=== PATIENT | male | born 1960 | race Caucasian/White ===

== ENCOUNTER → 2021-01-14 11:24 | Outpatient (BNVA) | payer SELFPAY | PROVIDERS: PCP Internal Medicine; Visit Provider Physician Assistant Medical ==

== ENCOUNTER 2021-04-08 10:03 | Outpatient (REF) | payer BC, SELFPAY ==
--- NOTE | ~2021-04-08 | XR_ITS ---
EXAMINATION: XR LUMBOSACRAL SPINE CLINICAL INFORMATION: Pain COMPARISON: None TECHNIQUE: Three views of the lumbosacral spine. FINDINGS: 5 nonrib-bearing lumbar-type vertebral bodies is suggestion of partial sacralization of L5. No acute visible fracture or dislocation. Mild to moderate multilevel degenerative changes with disc space narrowing, endplate sclerosis, osteophyte formation, and facet arthropathy. Vertebral body heights and disc spaces are otherwise maintained. Posterior elements are intact. Paraspinal soft tissues are unremarkable. Visualized bowel gas is unremarkable. Pelvic phleboliths are noted. XR/XR lumbar spine 2-3V IMPRESSION: 1. No acute visible fracture or dislocation. 2. Mild to moderate multilevel degenerative changes.
--- NOTE | ~2021-04-08 | XR_ITS ---
EXAMINATION: XR CERVICAL SPINE CLINICAL INFORMATION: Pain runs through arms COMPARISON: None TECHNIQUE: 3 views of the cervical spine were obtained. FINDINGS: No acute visible fracture or dislocation. Straightening of normal cervical curvature which may be secondary to positioning versus muscle spasm. Mild multilevel degenerative changes with disc space narrowing, osteophyte, and facet arthropathy. Visualized dens is intact. Lateral masses are symmetric. Vertebral body heights and disc spaces are maintained. Prevertebral soft tissues are unremarkable. Posterior elements are intact. Paraspinal soft tissues are unremarkable. Visualized portions of the upper chest are unremarkable. XR/XR cervical spine 3V IMPRESSION: 1. No acute visible fracture or dislocation. 2. Straightening of normal cervical curvature which may be secondary to positioning versus muscle spasm. 3. Mild multilevel degenerative changes.
[2021-04-08 10:23] LABS: MANUAL DIFF FLAG NO
[2021-04-08 10:54] LABS: Basophils Percent Auto 0.3 % (0-2); Eosinophils Absolute Auto 0.2 X10*3/uL (0.0-0.4); Eosinophils Percent Auto 3.8 % (0-4); Hematocrit 45.9 % (42.0-52.0); Hemoglobin 15.5 g/dl (14.0-18.0); Imm Gran Abs Auto 0.05 X10*3/uL (0.00-0.03); Imm Gran Pct Auto 0.9 % (0.0-0.4); Lymphocytes Absolute Auto 1.4 X10*3/uL (1.2-4.9); Lymphocytes Percent Auto 24.4 % (20-40); Mean Corpuscular HGB Conc 33.8 g/dl (31.0-36.0); Mean Corpuscular Volume 91.8 fL (80.0-98.0); Mean Platelet Volume 9.3 fL (9.4-12.4); Monocytes Absolute Auto 0.6 X10*3/uL (0.1-1.2); Monocytes Percent Auto 10.1 % (2-11); Neutrophils Absolute Auto 3.5 x10*3/uL (2.0-8.3); Neutrophils Percent Auto 60.5 % (45-73); Platelet Count 267 X10*3/uL (160-400); Red Cell Distribution Width 12.1 % (11.0-16.0); White Blood Count 5.9 X10*3/uL (4.8-10.8)
[2021-04-08 11:47] LABS: Alanine Aminotransferase 22 U/L (0-40); Alkaline Phosphatase 67 U/L (39-117); Anion Gap 14 (12-20); Aspartate Amino Transferase 21 U/L (5-37); Bilirubin Total 0.4 mg/dL (0.0-1.0); Blood Urea Nitrogen 21 mg/dL (9-16); Calcium 9.1 mg/dL (8.4-10.2); Carbon Dioxide 25 mmol/L (22-29); Chloride 104 mmol/L (96-108); Cholesterol 196 mg/dL; Estimated Glomerular Filt Rate > 60; Glucose Random 101 mg/dL (60-115); Potassium 4.6 mmol/L (3.3-5.1); Sodium 138 mmol/L (135-145); Total Protein 6.8 g/dL (6.5-8.0)
[2021-04-08 12:04] LABS: Vitamin B12 521 pg/mL (200-900)
[2021-04-08 12:14] LABS: Prostate Specific Antigen 0.76 ng/mL (<0.05-4.0); Thyroid Stimulating Hormone 1.95 uIU/mL (0.32-4.0)
== END 2021-04-08 10:04 | disposition home or self-care (01) ==
LOC: HO.LAB 10:03
PROVIDERS: PCP Internal Medicine; Visit Provider Internal Medicine
DX: K21.9 Gastro-esophageal reflux disease without esophagitis (principal); M54.50 Low back pain, unspecified; M54.2 Cervicalgia; R53.83 Other fatigue; Z86.010 Personal history of colon polyps; Z12.5 Encounter for screening for malignant neoplasm of prostate
CPT/HCPCS: 36415; 72040; 72100; 80053; 82465; 82607; 84153; 84443; 85025; 86140

== ENCOUNTER 2023-01-22 16:19 | Outpatient (REF) | payer BC, SELFPAY | END 2023-01-22 16:20 | disposition home or self-care (01) | LOC: HO.LAB 16:19 | PROVIDERS: PCP Internal Medicine; Visit Provider Internal Medicine | DX: Z13.89 Encounter for screening for other disorder (principal) ==

== ENCOUNTER → 2023-01-25 12:52 | Outpatient (BNVA) | payer SELFPAY | PROVIDERS: PCP Internal Medicine; Visit Provider Physician Assistant | DX: Z02.79 Encounter for issue of other medical certificate (principal) ==

== ENCOUNTER 2023-01-25 14:44 | Outpatient (REF) | payer BC, SELFPAY ==
[2023-01-25 15:08] LABS: MANUAL DIFF FLAG NO
[2023-01-25 15:24] LABS: Basophils Percent Auto 0.6 % (0-2); Eosinophils Absolute Auto 0.1 X10*3/uL (0.0-0.4); Eosinophils Percent Auto 0.8 % (0-4); Hematocrit 46.8 % (42.0-52.0); Hemoglobin 15.8 g/dl (14.0-18.0); Imm Gran Abs Auto 0.07 X10*3/uL (0.00-0.03); Lymphocytes Absolute Auto 1.4 X10*3/uL (1.2-4.9); Lymphocytes Percent Auto 19.5 % (20-40); Mean Corpuscular HGB Conc 33.8 g/dl (31.0-36.0); Mean Corpuscular Hemoglobin 31.4 pg (27.0-33.0); Mean Platelet Volume 9.3 fL (9.4-12.4); Monocytes Absolute Auto 0.7 X10*3/uL (0.1-1.2); Monocytes Percent Auto 9.3 % (2-11); Neutrophils Absolute Auto 4.9 x10*3/uL (2.0-8.3); Neutrophils Percent Auto 68.8 % (45-73); Platelet Count 261 X10*3/uL (160-400); Red Blood Count 5.03 X10*6/uL (4.60-5.80); Red Cell Distribution Width 12.2 % (11.0-16.0); White Blood Count 7.1 X10*3/uL (4.8-10.8)
[2023-01-25 15:55] LABS: Alanine Aminotransferase 19 U/L (0-40); Albumin Level 4.3 g/dL (3.5-5.0); Alkaline Phosphatase 62 U/L (39-117); Anion Gap 12 (12-20); Aspartate Amino Transferase 17 U/L (5-37); Bilirubin Total 0.4 mg/dL (0.0-1.0); Blood Urea Nitrogen 22 mg/dL (9-16); Calcium 9.6 mg/dL (8.4-10.2); Carbon Dioxide 25 mmol/L (22-29); Chloride 106 mmol/L (96-108); Cholesterol 206 mg/dL (<200); Estimated Glomerular Filt Rate > 60; Glucose Random 94 mg/dL (60-115); Potassium 4.1 mmol/L (3.3-5.1); Sodium 139 mmol/L (135-145); Total Protein 7.1 g/dL (6.5-8.0)
[2023-01-25 16:13] LABS: Prostate Specific Antigen 0.81 ng/mL (<0.05-4.0)
== END 2023-01-25 14:45 | disposition home or self-care (01) ==
LOC: HO.LAB 14:44
PROVIDERS: PCP Internal Medicine; Visit Provider Internal Medicine
DX: L30.9 Dermatitis, unspecified (principal); K21.9 Gastro-esophageal reflux disease without esophagitis; Z86.010 Personal history of colon polyps; Z12.5 Encounter for screening for malignant neoplasm of prostate; E78.00 Pure hypercholesterolemia, unspecified
CPT/HCPCS: 36415; 80053; 82465; 84153; 85025

== ENCOUNTER 2023-07-24 06:29 | Day surgery (SDC) | payer BC, SELFPAY ==
--- NOTE | 2023-06-18 09:29 | P.CONAN_ITS ---
HPI - Anesthesia Eval Consult details Narrative: 63yo M for Colonoscopy [facility] Past Medical History Medical History (Updated 06/18/23 @ 08:18 by Rosalinda Saeed, RN) Tear, knee, medial meniscus Surgical History Surgical History (Updated 06/18/23 @ 08:18 by Rosalinda Saeed, RN) History of surgery on lower extremity H/O colonoscopy Meds Allergies Allergy/AdvReac Type Severity Reaction Status Date / Time No Known Allergies Allergy Verified 06/18/23 08:18 Home Medications Medication Instructions Recorded Confirmed Last Taken Type No Known Home Meds 06/18/23 06/18/23 Unknown History Assessment and Plan Assessment Anesthesia Assessment: Chart Reviewed
[2023-07-20 11:39] VITALS: BMI 27.2
--- NOTE | 2023-07-20 14:04 | P.CONAN_ITS ---
Documented by User: Dora Wilson NP 07/20/23 14:04 HPI - Anesthesia Eval Consult details Narrative: 63yo M for Colonoscopy [facility] Past Medical History Medical History Tear, knee, medial meniscus Surgical History Surgical History History of surgery on lower extremity H/O colonoscopy Social History Social History Patient Tobacco Use Status: Never used Tobacco Are you DNR?: No Advance Directives: No Advance Directives Information Provided: Yes Nutrition Risks: No Nutritional Risk Meds Allergies Allergy/AdvReac Type Severity Reaction Status Date / Time No Known Allergies Allergy Verified 06/18/23 08:18 Home Medications Medication Instructions Recorded Confirmed Last Taken Type No Known Home Meds 06/18/23 06/18/23 Unknown History Exam Height,Weight and Vital Signs: Height 5 ft 9 in Weight 83.461 kg Assessment and Plan Assessment Anesthesia Assessment: Chart Reviewed Documented by User: Kiya Hernandez MD 07/24/23 07:24 [facility] Past Medical History Medical History Tear, knee, medial meniscus Surgical History Surgical History History of surgery on lower extremity H/O colonoscopy History of Problems with Anesthesia: No Social History Social History Patient Tobacco Use Status: Never used Tobacco Are you DNR?: No Advance Directives: No Advance Directives Information Provided: Yes Nutrition Risks: No Nutritional Risk Meds Allergies Allergy/AdvReac Type Severity Reaction Status Date / Time No Known Allergies Allergy Verified 06/18/23 08:18 Home Medications Medication Instructions Recorded Confirmed Last Taken Type No Known Home Meds 02/05/24 02/05/24 Unknown History Exam Airway Mallampati Class: II TM Dist: >3cm Neck ROM: Full Loose/Missing/Broken Teeth: No Heart: RRR Lungs: CTA Assessment and Plan Assessment Anesthesia Assessment: Anesthesia Plan Discussed Final Anesthetic Review History of Problems with Anesthesia: No NPO: Yes ASA Class: I Final Preanesthetic Review: Meds/Allgs Chart Reviewed and Consent Obtained/Reviewed Patient Risk: Low Procedure Risk: Low Anesthetic Plan Anesthetic Plan: MAC: Disposition: Standard PACU
[2023-07-24 06:36] VITALS: BP 119/71; PULSE 68; RESP 20; TEMP 36.6; O2SAT 98; BMI 27.4
[2023-07-24] MEDS: Lactated Ringers 1,000 ML 100 ML IVCONT (07:01)
--- NOTE | 2023-07-24 07:33 | MHC.SHP ---
Pre-Procedural Eval Section A - 24 Hr Update-Section A only Date of Service: 07/24/23 Section B - Complete if H&P > 30 days Chief Complaint: Encounter for screening for malignant neoplasm of Details of Present Illness: see H&P no changes Relevant Family History (Specify if Yes): No Relevant Social History: None Present Medications: see Short Stay Collaborative assessment Medical History: No relevant PMH Allergies: Allergies Allergy/AdvReac Type Severity Reaction Status Date / Time No Known Allergies Allergy Verified 06/18/23 08:18 Review of Systems Sugical H&P ROS: Negative: Constitution, Cardiovascular, Respiratory, Neurological, Psychiatric, Hem-Onc, Allergic/Immunologic, Gastrointestinal, Genitourinary, Musculoskeletal, Integumentary, Endocrine and Eyes/Ears/Nose/Throat Exam Surgical H&P Exam: Normal: HEENT, Normal: Heart, Normal: Lungs, Normal: Extremities, Normal: Abdomen, Normal: Skin and Normal: Neurological Plan Diagnosis/Plan: Unchanged I have reviewed the history and physical and performed a pertinent physical examination on my patient. No changes have occurred unless specified. Time Spent With Patient Time: Total time managing care of this patient today ____ minutes.
[2023-07-24 08:05] VITALS: BP 96/53; PULSE 63; RESP 18; TEMP 36.3; O2SAT 97
[2023-07-24 08:30] VITALS: BP 122/70; PULSE 80; RESP 18; TEMP 36.1; O2SAT 99
--- NOTE | 2023-07-24 08:40 | OP_ITS ---
DATE OF SERVICE: 07/24/2023 SURGEON: Rashaun Sotelo MD INDICATIONS: Colon cancer screening. PREOPERATIVE DIAGNOSIS: POSTOPERATIVE DIAGNOSIS: PROCEDURE PERFORMED: Colonoscopy to the terminal ileum. ESTIMATED BLOOD LOSS: COMPLICATIONS: ANESTHESIA: Monitored anesthesia care. ASSISTANTS: SPECIMENS: DESCRIPTION OF PROCEDURE: A history and physical were performed. The risks and benefits of the procedure were explained to the patient. Informed consent was obtained. The patient was placed in the left lateral decubitus position. A digital rectal exam was performed and was found to be normal. The Olympus pediatric video colonoscope was introduced in the rectum and advanced to the cecum. The cecum was identified by transillumination, palpation, and identification of the ileocecal valve. Examination was performed, and the scope was removed. He tolerated the procedure well and was returned to recovery area in stable condition. FINDINGS: The terminal ileum was examined and appeared normal. The visualized colonic mucosa was normal. The quality of prep was good. No polyps were identified. Retroflexed examination was normal. IMPRESSION: Normal colonoscopy. RECOMMENDATIONS: 1. Follow up as needed. 2. Repeat colonoscopy is recommended in 10 years for average risk individuals. MD BRIGHT Ortiz/MODL / [id number]
== END 2023-07-24 08:52 | disposition home or self-care (01) ==
PROVIDERS: PCP Internal Medicine; Visit Provider Internal Medicine Gastroenterology
PROC: 0DJD8ZZ Inspection of Lower Intestinal Tract, Via Natural or Artificial Opening Endoscopic (ICD-10-PCS; CPT 45378; principal; 2023-07-24 07:30)
DX: Z12.11 Encounter for screening for malignant neoplasm of colon (principal); Z86.010 Personal history of colon polyps; Z80.0 Family history of malignant neoplasm of digestive organs
CPT/HCPCS: 45378; J2704

== ENCOUNTER 2024-01-28 13:18 | Inpatient (IN) | payer BC, SELFPAY ==
--- NOTE | ~2024-01-28 | XR_ITS ---
EXAMINATION: XR FOOT, RIGHT CLINICAL INFORMATION: Cellulitis COMPARISON: None available. TECHNIQUE: AP, lateral, and oblique views of the right foot. FINDINGS: There is mild hallux valgus. Some degenerative changes are present at the DIP joints most marked in the third digit. No fractures or dislocations are seen. No bony destructive lesions are seen. No significant soft tissue swelling or joint effusion is present. XR/XR foot RT min 3V IMPRESSION: Degenerative changes and hallux valgus as described above. No evidence of osteomyelitis. Electronically signed by: Corwin Cummins MD 01/28/2024 03:36 PM EDT
[2024-01-28 13:20] VITALS: BP 140/75; PULSE 86; RESP 20; TEMP 37; O2SAT 96; BMI 27.7
--- NOTE | 2024-01-28 13:25 | ED.WOUNDLAC ---
HPI - Wound/Laceration General Chief Complaint: Wound/Laceration Stated Complaint: Infection L Foot Time Seen by Provider: 01/28/24 16:18 Source: patient Mode of arrival: ambulatory Limitations: no limitations History of Present Illness ED Provider: june CLARK narrative: Patient was healthy no significant past medical history was in the [place] put his left foot on piles of shells with no significant injury or open wounds , with in 48 hours patient noticed small blister on the dorsum of the left foot which kept increasing in size with redness was seen at urgent [facility] [place] on 01/22 and started on doxycycline cephalexin since then wound is getting worse with increased redness and serous discharge Related Data Home Medications ?Medication ?Instructions ?Recorded ?Confirmed cephalexin 500 mg capsule 500 mg PO QID 01/28/24 01/28/24 Allergies Allergy/AdvReac Type Severity Reaction Status Date / Time No Known Allergies Allergy Verified 01/28/24 13:24 Review of Systems Review of Systems: Yes all other systems are reviewed and are negative [facility] Past Medical History Medical History Eczema Tear, knee, medial meniscus Surgical History History of surgery on lower extremity H/O colonoscopy Social History Social History Household Members: None Housing: House Do you presently have visiting nurse or other home services: No Alcohol intake: current Alcohol intake frequency: 0-2 drinks per day Alcohol type: beer Patient Tobacco Use Status: Never used Tobacco Physical Exam Vital Signs: Vital Signs: Last Vital Signs Temp 97.2 F 01/28/24 20:47 Pulse 64 01/28/24 20:47 Resp 18 01/28/24 20:47 BP 154/73 H 01/28/24 20:47 Pulse Ox 97 01/28/24 20:47 O2 Del Method Room Air 01/28/24 20:47 BMI result Body Mass Index 27.7 Appearance: Alert. Oriented X3. No acute distress. Eyes: No pallor or icterus ENT: Pharynx normal. Oral Mucosa moist Neck: Normal inspection. Neck supple. CVS: Normal heart rate and rhythm. Pulses normal. Respiratory: No respiratory distress. Equal air entry bilateral, no wheezing/rales/rhonchi Abdomen: Soft and nontender. Bowel sounds are present, no mass palpable, no CVA tenderness Skin: Skin warm and dry. Normal skin color. Normal skin turgor. Extremities: No lower extremity edema. No calf tenderness Neuro: Oriented X 3. No motor deficit. No sensory deficit.No cerebellar signs , cranial nerves II-XII intact Course Course Course Narrative: This is a Rapid Medical Examination (RME) performed by Will Bertrand PA-C in triage. Full HPI, ROS, assessment and treatment plan per primary provider in the Main ED. 63 yo male here for eval of infection to right foot x1 week, worsening. reports stepping on a seashell 1 wk ago. began to have blistering, open wounds, with purulent discharge from the distal top of the right foot. denies hx of DM. Denies fever/chills. no new meds/ antibiotics. no rash elsewhere on body. + blistering erythematuos rash to dorsum of right foot/ webbed spaces. spares mucous membranes. Plan: labs, lactic, blood cultures Medications Administered Generic Name Dose Route Start Last Admin Trade Name Freq PRN Reason Stop Dose Admin Diphenhydramine HCl 25 mg 01/28/24 18:10 01/28/24 22:23 Diphenhydramine Hcl 25 Mg Capsule PO 25 mg Q4H PRN Administration pruritus Hydrocortisone 1 appl 01/28/24 21:00 01/28/24 19:47 Hydrocortisone 1 % Cream 28.35 Gm Tube TOPICAL 1 appl BID ELLIS Administration Protocol Cefepime HCl 2 gm/ Sodium 50 mls @ 100 mls/hr 01/28/24 18:15 01/28/24 20:16 Chloride IV Infused Q8H ELLIS Infusion Sodium Chloride 3 ml 01/29/24 00:00 01/28/24 22:28 0.9 % Sodium Chloride Flush 3 Ml Syringe IVFLUSH 3 ml QSHIFT ELLIS Administration Discontinued Medications Generic Name Dose Route Start Last Admin Trade Name Freq PRN Reason Stop Dose Admin Diphtheria/Tetanus/Acell Pertussis 0.5 ml 01/28/24 16:50 01/28/24 17:09 Diphth,Pertus(Acell),Tet Adult 0.5 Ml Syringe IM 01/28/24 16:51 0.5 ml .ONCE ONE Administration Sodium Chloride 1,000 mls @ 999 mls/hr 01/28/24 16:36 01/28/24 18:09 Ns IV 01/28/24 17:36 Infused .Q1H1M ONE Infusion Ceftriaxone Sodium 2 gm/ 50 mls @ 100 mls/hr 01/28/24 16:36 01/28/24 18:08 Sodium Chloride IV 01/28/24 17:05 Infused ONCE ONE Infusion Doxycycline Hyclate 100 mg/ 250 mls @ 166.67 mls/hr 01/28/24 16:36 01/28/24 20:16 Sodium Chloride IV 01/28/24 18:05 Infused ONCE ONE Infusion Medical Decision Making Medical Decision Making MDM Narrative: Patient has cellulitis after getting injured on the pile of shells in the see [place] 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 as patient had blue blisters already taking cephalexin doxycycline still having the serous discharge and erythema with macerated skin between the toes will admit for IV antibiotics no signs of necrotizing fasciitis /deeper infection Differential Diagnosis Differential Diagnoses: The differential diagnosis associated with the presentation includes Admission/Observation Consideration of admission/observation: Escalation of care including admission/observation considered Consult Healthcare Provider Management of the patient was discussed with: Hospitalist Lab Data MDM Lab Attestation statement: I reviewed the patient's lab results. 01/28/24 14:05 01/28/24 14:05 Labs: Lab Results 01/28/24 Range/Units 14:05 WBC 7.7 (4.8-10.8) X10*3/uL RBC 4.99 (4.60-5.80) X10*6/uL Hgb 16.1 (14.0-18.0) g/dl Hct 45.5 (42.0-52.0) % MCV 91.2 (80.0-98.0) fL MCH 32.3 (27.0-33.0) pg MCHC 35.4 (31.0-36.0) g/dl RDW 12.0 (11.0-16.0) % Plt Count 274 (160-400) X10*3/uL MPV 9.1 L (9.4-12.4) fL Immature Gran % (Auto) 1.2 H (0.0-0.4) % Neut % (Auto) 70.4 (45-73) % Lymph % (Auto) 15.3 L (20-40) % [place] % (Auto) 7.7 (2-11) % Eos % (Auto) 4.9 H (0-4) % Baso % (Auto) 0.5 (0-2) % Lymph # (Auto) 1.2 (1.2-4.9) X10*3/uL [place] # (Auto) 0.6 (0.1-1.2) X10*3/uL Eos # (Auto) 0.4 (0.0-0.4) X10*3/uL Baso # (Auto) 0.0 (0.0-0.2) X10*3/uL Abs Immat Gran (auto) 0.09 H (0.00-0.03) X10*3/uL Absolute Neuts (auto) 5.4 (2.0-8.3) x10*3/uL Absolute Nucleated RBC 0.000 (0.0-0.012) X10*3/uL Nucleated RBC % (auto) 0.0 (0.0-0.2) /100WBC Sodium 141 (135-145) mmol/L Potassium 4.1 (3.3-5.1) mmol/L Chloride 108 (96-108) mmol/L Carbon Dioxide 24 (22-29) mmol/L Anion Gap 13 (12-20) BUN 15 (9-16) mg/dL Creatinine 0.86 (0.5-1.4) mg/dL Estim Creat Clear Calc 90.9 Estimated GFR > 60 Random Glucose 105 (60-115) mg/dL Lactic Acid 0.9 (0.5-2.0) mmol/L Calcium 9.5 (8.4-10.2) mg/dL Total Bilirubin 0.3 (0.0-1.0) mg/dL AST 16 (5-37) U/L ALT 21 (0-40) U/L Alkaline Phosphatase 63 (39-117) U/L Total Protein 7.0 (6.5-8.0) g/dL Albumin 4.0 (3.5-5.0) g/dL Independent Interpretation I performed an independent interpretation of an: Plain X-Ray Interpretation: No bony erosion Discharge Plan Discharge 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
[2024-01-28 14:11] LABS: MANUAL DIFF FLAG NO
[2024-01-28 14:13] LABS: Basophils Percent Auto 0.5 % (0-2); Eosinophils Absolute Auto 0.4 X10*3/uL (0.0-0.4); Eosinophils Percent Auto 4.9 % (0-4); Hematocrit 45.5 % (42.0-52.0); Hemoglobin 16.1 g/dl (14.0-18.0); Imm Gran Abs Auto 0.09 X10*3/uL (0.00-0.03); Imm Gran Pct Auto 1.2 % (0.0-0.4); Lymphocytes Absolute Auto 1.2 X10*3/uL (1.2-4.9); Lymphocytes Percent Auto 15.3 % (20-40); Mean Corpuscular HGB Conc 35.4 g/dl (31.0-36.0); Mean Corpuscular Hemoglobin 32.3 pg (27.0-33.0); Mean Corpuscular Volume 91.2 fL (80.0-98.0); Mean Platelet Volume 9.1 fL (9.4-12.4); Monocytes Absolute Auto 0.6 X10*3/uL (0.1-1.2); Monocytes Percent Auto 7.7 % (2-11); Neutrophils Absolute Auto 5.4 x10*3/uL (2.0-8.3); Neutrophils Percent Auto 70.4 % (45-73); Platelet Count 274 X10*3/uL (160-400); Red Blood Count 4.99 X10*6/uL (4.60-5.80); White Blood Count 7.7 X10*3/uL (4.8-10.8)
--- OUTSIDE RECORDS SUMMARY | 2024-01-28 14:13 | XMS_ITS ---
Author Organization [facility] Address [address] [place] [phone] Care Team Providers Care Adon Name Role Phone Isra Newman MD Primary Care Provider Unavaila Rashaun Sarmiento Jr Unavailable [phone] REASON FOR VISIT [facility] [place] [facility] Encounters Encounter Location Date Provider Diagnosis [facility] [address] [place] [id number] 06/15/2023 Rashaun Sotelo Jr PLAN OF TREATMENT No Information
--- OUTSIDE RECORDS SUMMARY | 2024-01-28 14:13 | XMS_ITS ---
Author Organization [facility] Address [address] [place] [address] Care Team Providers Care Aspnet Developer Name Role Phone Isra Newman MD Primary Care Provider Unavaila Rashaun Sarmiento Jr Unavailable REASON FOR VISIT screening Encounters Encounter Location Date Provider Diagnosis [facility] [place] [facility] [address] [place], [place] [phone] 07/24/2023 Rashaun Sotelo Jr Encounter for screening colonoscopy Z12.11 ASSESSMENTS Encounter Date Diagnosis Assessment Notes Treatment Notes Treatment Clinical Notes 07/24/2023 Encounter for screening colonoscopy (ICD-10 - Z12.11) PLAN OF TREATMENT No Information
--- OUTSIDE RECORDS SUMMARY | 2024-01-28 14:13 | XMS_ITS ---
Author Organization [facility] Address [address] [place] [phone] Care Team Providers Care Machinist Linotype Name Role Phone Isra Newman MD Primary Care Provider Unavaila Rashaun Sarmiento Jr Unavailable REASON FOR VISIT screening Encounters Encounter Location Date Provider Diagnosis [facility] [place] [address] [place] [id number] 06/19/2023 Rashaun Sotelo Jr PLAN OF TREATMENT No Information
--- OUTSIDE RECORDS SUMMARY | 2024-01-28 14:13 | XMS_ITS | Patient Health Record ---
Author Organization [facility] Address [address] [place] [address] Care Team Providers Care Wet Silk Hanger Name Role Phone Isra Davila MD Primary Care Provider Unavaila ble Rashaun Ness Jr Unavailable [phone] ALLERGIES No Known Allergies REASON FOR REFERRAL Referring Provider First Name Isra Referring Provider Last Name Trent Referring Provider Speciality Internal M edicine Referred Organization [facility] Referred Provider Rashaun Ness Jr Referred Address [address],[place], [place],[address], Referred Provider Specialty Gastroentero logy General Notes request an o blue referral from dr davila's office for visit with dr ness on 06-04-2023 ext [phone] Dawn 04/18/2023 09:51:57 AM EST > req ref dated 05-10-2023 Referral Priority Routine MEDICATIONS Medication SIG (Take, Route, Frequency, Duration) Notes Start Date End Date Status MiraLax (colon prep) 8.3 ounce ((238) grams mixed with Gatorade or Crystal Light orally begin at 5:00 p.m. the day before the procedure for 1 day 06/04/2023 Active IMMUNIZATIONS Vaccine Route Administration Date Status Comme nts Influenza Unknown 06/04/2023 Refused SOCIAL HISTORY Sex Assigned At : Social History Observation Description Sex Assigned At Unknown PROBLEMS Problem Type ICD Code Onset Dates Problem Status W/U Status Risk SNOMED Code Notes Problem Colon cancer screening (Z12.11) Active confirmed 501201226 Problem Encounter for other preprocedural examination (Z01.818) Active confirmed 419253905 Problem FH: colon cancer (Z80.0) Active confirmed 132659346 VITAL SIGNS Temperature 97.8 degrees Fahrenheit 06/04/2023 Blood pressure diastolic 00 mm Hg 06/04/2023 Height 69 in 06/04/2023 Blood pressure systolic 000 mm Hg 06/04/2023 Weight 184 lbs 06/04/2023 BMI 27.17 kg/m2 06/04/2023 Encounters Encounter Location Date Provider Diagnosis [facility] [place] [address] [place] [id number] 06/19/2023 Rashaun Ness Jr [facility] [place] [address] [place] [id number] 07/24/2023 Rashaun Ness Jr Encounter for screening colonoscopy Z12.11 [facility] [address] [place] [phone] 06/04/2023 Rashaun Ness Jr Colon cancer screening Z12.11 ; Encounter for other preprocedural examination Z01.818 and FH: colon cancer Z80.0 [facility] [address] [place] [phone] 06/15/2023 Rashaun Ness Jr ASSESSMENTS Encounter Date Diagnosis Assessment Notes Treatment Notes Treatment Clinical Notes 07/24/2023 Encounter for screening colonoscopy (ICD-10 - Z12.11) 06/04/2023 Colon cancer screening (ICD-10 - Z12.11) Colonoscopy material was printed 06/04/2023 Encounter for other preprocedural examination (ICD-10 - Z01.818) 06/04/2023 FH: colon cancer (ICD-10 - Z80.0) PLAN OF TREATMENT Future Test Test Name Order Date COLONOSCOPY 04/03/2013 COLONOSCOPY 06/04/2023 Insurance Providers Payer Name Payer Address Payer Phone Subscriber Number Group Number Insured Name Patient Relationship to Insured Coverage Start Date Coverage End Date [facility] [employer] [address] [place] [address] [id number] CASH PATEL Self - patient is the insured MEDICAL (GENERAL) HISTORY Medical History History ICD Code Colonoscopy 06/27, tubular adenoma, five- year followup Surgical History Surgery Date(Month/Year) repaired artery in right leg meniscus repair in left knee
[2024-01-28 14:29] LABS: Alanine Aminotransferase 21 U/L (0-40); Alkaline Phosphatase 63 U/L (39-117); Anion Gap 13 (12-20); Aspartate Amino Transferase 16 U/L (5-37); Bilirubin Total 0.3 mg/dL (0.0-1.0); Blood Urea Nitrogen 15 mg/dL (9-16); Calcium 9.5 mg/dL (8.4-10.2); Carbon Dioxide 24 mmol/L (22-29); Chloride 108 mmol/L (96-108); Creatinine Clr Calc Pharmacy 90.9; Estimated Glomerular Filt Rate > 60; Glucose Random 105 mg/dL (60-115); Lactic Acid 0.9 mmol/L (0.5-2.0); Potassium 4.1 mmol/L (3.3-5.1); Sodium 141 mmol/L (135-145)
[2024-01-28 16:20] VITALS: BP 151/74; PULSE 60; RESP 17; TEMP 36.8; O2SAT 98
--- NOTE | 2024-01-28 16:24 | MHC.EDTECH ---
This tech assumed care of this PT. Pt changed over into a hospital gown
[2024-01-28] MEDS: 0.9 % Sodium Chloride 1,000 ML 999 ML IV (16:48)
[2024-01-28] MEDS: cefTRIAXone sodium 2 GM in 0.9 % Sodium Chloride 50 ML IV (16:56)
[2024-01-28] MEDS: Diphth,Pertus(ACell),Tet Adult 0.5 ML SYRINGE IM (17:09)
[2024-01-28] MEDS: Doxycycline Hyclate 100 MG in 0.9 % Sodium Chloride 250 ML 166.67 MG IV (17:10)
--- NOTE | 2024-01-28 17:30 | P.HPHOSP_ITS ---
History of Present Illness Date of Service: 01/28/24 Attending physician on admission: Breezy Khan Chief Complaint: foot infection 63-year-old male with history of eczema but no other significant past medical history presented to the ED earlier today for evaluation of an infection of the right foot. He reports that he was walking on seashells 8 days ago and 2 days later developed and oozing rash between 2 of his toes. He states this then spread in between other toes and began developing redness, mild swelling, and serous drainage from the dorsum of the foot and in between the toes prompting him to present to the urgent care for further evaluation. He was prescribed doxycycline and Keflex which he reports taking as prescribed. He states he was also using Benadryl which he feels did help. States that the area had been improving until this morning when he began experiencing worsening erythema with a purplish hue and increased drainage prompting him to present to the ED for further evaluation. Since arrival, has been mildly hypertensive but vital signs otherwise stable. There is no leukocytosis. Renal function and electrolyte levels normal. Lactic acid 0.9. X-ray of the right foot shows degenerative changes of the hallux valgus but no acute osseous abnormality including evidence of osteomyelitis. Given concerns for vibriosis, has been started on IV doxycycline and ceftriaxone. Review of Systems 2 Review of Systems: Yes all other systems are reviewed and are negative [facility] Medical History Eczema Tear, knee, medial meniscus Surgical History History of surgery on lower extremity H/O colonoscopy Social History Alcohol intake: current Alcohol intake frequency: 0-2 drinks per day Alcohol type: beer Patient Tobacco Use Status: Never used Tobacco Smoked in Last 30 Days: No Use of substances other than those prescribed or required for medical reasons: No Advance Directives: No Advance Directives Information Provided: Yes Do you have a plan to hurt others: No Plan Meds Allergies Allergy/AdvReac Type Severity Reaction Status Date / Time No Known Allergies Allergy Verified 01/28/24 13:24 Active Medications: Current Medications Sodium Chloride (Ns) 1,000 mls @ 999 mls/hr IV .Q1H1M ONE Stop: 01/28/24 17:36 Last Admin: 01/28/24 16:48 Dose: 999 mls/hr Doxycycline Hyclate 100 mg/ (Sodium Chloride) 250 mls @ 166.67 mls/hr IV ONCE ONE Stop: 01/28/24 18:05 Last Admin: 01/28/24 17:10 Dose: 166.67 mls/hr Home Medications ?Medication ?Instructions ?Recorded ?Confirmed ?Last Taken ?Type No Known Home Meds 06/18/23 06/18/23 Unknown History Physical Exam 2 Vital Signs and Narrative: Vital Signs: Last Vital Signs Temp 98.2 F 01/28/24 16:20 Pulse 60 01/28/24 16:20 Resp 17 01/28/24 16:20 BP 151/74 H 01/28/24 16:20 Pulse Ox 98 01/28/24 16:20 O2 Del Method Room Air 01/28/24 16:20 BMI result Body Mass Index 27.7 Constitutional - Awake and Alert, No apparent distress Eyes - PERRLA, EOMI Cardiovascular - S1S2, RRR, No edema Respiratory - Normal lung expansion, Normal respiratory effort, No respiratory distress, CTA bilaterally Gastrointestinal - NT / ND; +BS; No rebound or guarding Extremities - no calf tenderness bilaterally, no swelling Skin - Warm/Dry. Erythematous scaling area of warmth on dorsum of foot with serous foul smelling drainage and maceration of tissue between digits R foot Neurological - Alert & oriented x3 Psychological - Appropriate affect Results Labs 01/28/24 14:05 01/28/24 14:05 Labs: Laboratory Results - last 24 hr 01/28/24 14:05 MCV 91.2 MCH 32.3 MCHC 35.4 RDW 12.0 Plt Count 274 MPV 9.1 L Immature Gran % (Auto) 1.2 H Neut % (Auto) 70.4 Lymph % (Auto) 15.3 L [place] % (Auto) 7.7 Eos % (Auto) 4.9 H Baso % (Auto) 0.5 Lymph # (Auto) 1.2 [place] # (Auto) 0.6 Eos # (Auto) 0.4 Baso # (Auto) 0.0 Abs Immat Gran (auto) 0.09 H Absolute Neuts (auto) 5.4 Absolute Nucleated RBC 0.000 Nucleated RBC % (auto) 0.0 Anion Gap 13 Estim Creat Clear Calc 90.9 Estimated GFR > 60 Random Glucose 105 Lactic Acid 0.9 Calcium 9.5 Total Bilirubin 0.3 AST 16 ALT 21 Alkaline Phosphatase 63 Total Protein 7.0 Albumin 4.0 Imaging Radiologist's Impressions: Impressions Foot X-Ray 01/28/24 13:24 IMPRESSION: Degenerative changes and hallux valgus as described above. No evidence of osteomyelitis. 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 No sepsis on admission -infectious disease consult -General surgery consult to evaluate for need for debridement # eczema -acute flare -hydrocortisone cream by daily, Benadryl p.r.n. DVT prophylaxis- SCPs, early ambulation. Consider lovenox if no debridement indicated full code pt requires inpt stay at least 2 midnights for management of cellulitis due to vibrio having failed oral abx now requiring iv abx, expert consultation and possible debridement Quality Stroke Does the patient have a stroke diagnosis?: No VTE Prior VTE?: No VTE Risk Level:: Medical - moderate - high VTE Device Contraindication: Treatment Not Indicated VTE Drug Contraindication: N/A - Med Ordered
--- NOTE | 2024-01-28 18:34 | PHA.MEDREC ---
Pharmacy Consult ? Medication Reconciliation Pharmacy has completed the medication reconciliation. Spoke with patient bedside. Patient only takes organic herbal medications, and does not want to take any synthetic vitamins offered on formulary. Patient takes an organic herbal multivitamin, tumeric, and numerous herbs. He has been taking Cephalexin 500mg QID (rather than the prescribed TID), and only has 1 day remaining of his 5 day regimen. Pt last took cephalexin today at noon.
[2024-01-28] MEDS: cefEPime HCl 2 GM in 0.9 % Sodium Chloride 50 ML IV (19:44)
[2024-01-28] MEDS: Hydrocortisone 1 % Cream 28.35 GM TUBE 1 APPL TOPICAL (19:47)
[2024-01-28 19:52] VITALS: BP 115/66; PULSE 64; RESP 16; O2SAT 97
[2024-01-28 20:47] VITALS: BP 154/73; PULSE 64; RESP 18; TEMP 36.2; O2SAT 97
[2024-01-28 21:59] VITALS: BMI 28.5
[2024-01-28] MEDS: diphenhydrAMINE HCL 25 MG CAPSULE PO (22:23)
[2024-01-28] MEDS: 0.9 % Sodium Chloride Flush 3 ML SYRINGE IVFLUSH (22:28)
[2024-01-29] MEDS: cefEPime HCl 2 GM in 0.9 % Sodium Chloride 50 ML IV ×3 (03:11→18:07)
[2024-01-29 03:23] VITALS: BP 136/61; PULSE 63; RESP 16; TEMP 36.1; O2SAT 96
--- NOTE | 2024-01-29 03:33 | PC.NURSE ---
2200; Upon admission assessment, patient took off dressing off the right foot and requested to leave it open to air at this time. Right foot with redness, swelling, blistering and purulent drainage between digits. Patient refusing a new dressing to right foot at this time.
[2024-01-29] MEDS: Doxycycline Hyclate 100 MG in 0.9 % Sodium Chloride 250 ML 166.67 MG IV (03:58)
--- NOTE | 2024-01-29 07:24 | PM.CNGS ---
History of Present Illness Consult details Consult date: 01/29/24 Narrative: Patient has a proximally week and a half status post sustaining a seashell injury to his plantar aspect of his right foot. Few days later he developed marked swelling and redness and pain of the foot. Presents here with cellulitic process of the right foot presumed to be from vibrio organism. Since his hospitalization, patient has had marked improvement of the symptoms. He claims that the swelling and pain are markedly improved along with the redness. Chart was reviewed and patient evaluated [facility] Past Medical History Medical History Eczema Tear, knee, medial meniscus Surgical History Surgical History History of surgery on lower extremity H/O colonoscopy Social History Social History Household Members: None Housing: House Do you presently have visiting nurse or other home services: No Alcohol intake: current Alcohol intake frequency: 0-2 drinks per day Alcohol type: beer Patient Tobacco Use Status: Never used Tobacco Meds Allergies Allergy/AdvReac Type Severity Reaction Status Date / Time No Known Allergies Allergy Verified 01/28/24 13:24 Active Medications: Current Medications Acetaminophen (Acetaminophen 325 Mg Tablet) 650 mg PO Q6H PRN PRN Reason: Pain, Mild (Pain Scale 1-3), fever or headache Calcium Carbonate (Calcium Carbonate 750 Mg Tab.Chew) 750 mg PO Q4H PRN PRN Reason: Heartburn Diphenhydramine HCl (Diphenhydramine Hcl 25 Mg Capsule) 25 mg PO Q4H PRN PRN Reason: pruritus Last Admin: 01/28/24 22:23 Dose: 25 mg Hydrocortisone (Hydrocortisone 1 % Cream 28.35 Gm Tube) 1 appl TOPICAL BID [facility]; Protocol Last Admin: 01/28/24 19:47 Dose: 1 appl Doxycycline Hyclate 100 mg/ (Sodium Chloride) 250 mls @ 166.67 mls/hr IV Q12H [facility] Last Infusion: 01/29/24 05:28 Dose: Infused Cefepime HCl 2 gm/ Sodium (Chloride) 50 mls @ 100 mls/hr IV Q8H [facility] Last Infusion: 01/29/24 03:41 Dose: Infused Magnesium Hydroxide (Milk Of Magnesia 30 Ml Oral.Susp) 30 ml PO DAILY PRN PRN Reason: Constipation Melatonin (Melatonin 3 Mg Tablet) 6 mg PO BEDTIME PRN PRN Reason: Insomnia Oxycodone HCl (Oxycodone Hcl Immed Release 5 Mg Tablet) 5 mg PO Q6H PRN PRN Reason: Pain, Severe (Pain Scale 7-10) Sodium Chloride (0.9 % Sodium Chloride Flush 3 Ml Syringe) 3 ml IVFLUSH QSHIFT [facility] Last Admin: 01/28/24 22:28 Dose: 3 ml Home Medications ?Medication ?Instructions ?Recorded ?Confirmed ?Last Taken ?Type cephalexin 500 mg capsule 500 mg PO QID 01/28/24 01/28/24 01/28/24 12:00 History Physical Exam Vital Signs: Vital Signs: Last Vital Signs Temp 97.0 F 01/29/24 03:23 Pulse 63 01/29/24 03:23 Resp 16 01/29/24 03:23 BP 136/61 01/29/24 03:23 Pulse Ox 96 01/29/24 03:23 O2 Del Method Room Air 01/29/24 03:23 BMI result Body Mass Index 28.5 Extrem: Other: Patient has a palpable right pedal pulse. The foot is grossly neurovascularly intact. In comparison to the picture on admission, patient has had marked reduction in the edema and erythema. There is some desquamating skin and cellulitic changes and a small blister on the plantar aspect . Results Labs 01/28/24 14:05 01/28/24 14:05 Labs: Abnormal lab results 01/28/24 Range/Units 14:05 MPV 9.1 L (9.4-12.4) fL Immature Gran % (Auto) 1.2 H (0.0-0.4) % Lymph % (Auto) 15.3 L (20-40) % Eos % (Auto) 4.9 H (0-4) % Abs Immat Gran (auto) 0.09 H (0.00-0.03) X10*3/uL Short CBC 01/28/24 Range/Units 14:05 WBC 7.7 (4.8-10.8) X10*3/uL Hgb 16.1 (14.0-18.0) g/dl Hct 45.5 (42.0-52.0) % Plt Count 274 (160-400) X10*3/uL BMP 01/28/24 14:05 Sodium 141 Potassium 4.1 Chloride 108 Carbon Dioxide 24 BUN 15 Creatinine 0.86 Calcium 9.5 Liver Function 01/28/24 Range/Units 14:05 Total Bilirubin 0.3 (0.0-1.0) mg/dL AST 16 (5-37) U/L ALT 21 (0-40) U/L Alkaline Phosphatase 63 (39-117) U/L Albumin 4.0 (3.5-5.0) g/dL All other labs normal. 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 Continue IV antibiotics, local wound care, extremity elevation. Procedures Date of Service Date of Service: 01/29/24
[2024-01-29 07:44] VITALS: BP 117/54; PULSE 60; RESP 16; TEMP 36.2; O2SAT 94
[2024-01-29] MEDS: Hydrocortisone 1 % Cream 28.35 GM TUBE 1 APPL TOPICAL ×2 (08:09→20:56)
[2024-01-29] MEDS: 0.9 % Sodium Chloride Flush 3 ML SYRINGE IVFLUSH ×3 (08:09→20:56)
[2024-01-29 08:17] LABS: MANUAL DIFF FLAG NO
[2024-01-29 08:20] LABS: Basophils Percent Auto 0.6 % (0-2); Eosinophils Absolute Auto 0.6 X10*3/uL (0.0-0.4); Eosinophils Percent Auto 8.4 % (0-4); Hematocrit 44.8 % (42.0-52.0); Hemoglobin 15.2 g/dl (14.0-18.0); Imm Gran Abs Auto 0.08 X10*3/uL (0.00-0.03); Imm Gran Pct Auto 1.2 % (0.0-0.4); Lymphocytes Absolute Auto 1.4 X10*3/uL (1.2-4.9); Lymphocytes Percent Auto 19.7 % (20-40); Mean Corpuscular HGB Conc 33.9 g/dl (31.0-36.0); Mean Corpuscular Hemoglobin 31.6 pg (27.0-33.0); Mean Corpuscular Volume 93.1 fL (80.0-98.0); Mean Platelet Volume 9.4 fL (9.4-12.4); Monocytes Absolute Auto 0.7 X10*3/uL (0.1-1.2); Monocytes Percent Auto 9.7 % (2-11); Neutrophils Absolute Auto 4.2 x10*3/uL (2.0-8.3); Neutrophils Percent Auto 60.4 % (45-73); Platelet Count 236 X10*3/uL (160-400); Red Blood Count 4.81 X10*6/uL (4.60-5.80); White Blood Count 6.9 X10*3/uL (4.8-10.8)
[2024-01-29 08:36] LABS: Anion Gap 10 (12-20); Blood Urea Nitrogen 11 mg/dL (9-16); Calcium 8.7 mg/dL (8.4-10.2); Carbon Dioxide 25 mmol/L (22-29); Chloride 108 mmol/L (96-108); Creatinine Clr Calc Pharmacy 104.2; Estimated Glomerular Filt Rate > 60; Glucose Random 92 mg/dL (60-115); Potassium 4.1 mmol/L (3.3-5.1); Sodium 139 mmol/L (135-145)
--- NOTE | 2024-01-29 10:43 | HO.WOUND ---
Wound Consult: Initial 63yr old?Male admitted to [facility] [place] on 01/28/24 - See progress notes and H&P for detailed history.? Wound consult placed for Right Foot cellulitis.? 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 We discussed drainage absorption, infection control and moist wound healing. He remains skeptical about covering and not worsening but ultimately was agreeable to a dressing. Right Toe Webspace Etiology: ??Maceration - Cellulitis Wound Bed: white moist macerated tissue between toes - peeling and revealing pink moist wound beds Drainage / Odor: mild odor noted - serous fluid - crusting to wound edges Edges: ? irregular Rachel wound: ?red erythema with various vessicles noted on dorsal side of foot - plantar warts noted to plantar area - improving erythema per patient statement, +PP - No Induration, Fluctuance noted Pain: denies - denies neuropathy Goals of Treatment: ? Moisture management with Durafiber if patient refuses may consider Interdry Recommendations: 1. Right Toe Webspace - Elevate Lower Legs on 2-3 pillows. Cleanse with Ph balanced wipes / spray. Day dry. Apply skin prep to periwound. Weave Durafiber AG between toes, leave wick for drainage - apply dry gauze, ABD pad and gauze wrap. Change Daily. If patient is refusing dressing - May attempt to translocate moisture with Interdry weaved between toes, be sure to leave wick. Re-consult wound care Nurse for wound deterioration or wound changes.
--- NOTE | 2024-01-29 13:37 | MHC.CM.PN ---
Pt. lives alone is independent, no home health services or DME. HCP was discussed, he declined to complete form. PCP confirmed: Dr Newman. Transport home at DC, his car is in lot. DCP: home, self care. CM to follow for DC needs.
--- NOTE | 2024-01-29 14:20 | HO.PM.IMPN ---
Subjective Subjective Date of Service: 01/29/24 Interval History: No acute issues overnight. Patient notes improvement in pain when upright Review of Systems Denies chest pain Denies shortness of breath Denies nausea vomiting diarrhea Denies fever chills Physical Exam Vital Signs: Vital Signs: Last Vital Signs Temp 97.2 F 01/29/24 07:44 Pulse 60 01/29/24 07:44 Resp 16 01/29/24 07:44 BP 117/54 L 01/29/24 07:44 Pulse Ox 94 01/29/24 07:44 O2 Del Method Room Air 01/29/24 07:44 BMI result Body Mass Index 28.5 Const: Other: Awake alert no acute distress Resp: Other: Clear to auscultation bilaterally no rales rhonchi or wheezes Cardio: Other: No S4; positive S1-S2; no S3 murmurs rubs or gallops GI: Other: Soft nontender nondistended normoactive bowel sounds Extrem: Other: No edema bilaterally Objective Data Active Medications Acetaminophen (Acetaminophen 325 Mg Tablet) 650 mg PO Q6H PRN PRN Reason: Pain, Mild (Pain Scale 1-3), fever or headache Calcium Carbonate (Calcium Carbonate 750 Mg Tab.Chew) 750 mg PO Q4H PRN PRN Reason: Heartburn Diphenhydramine HCl (Diphenhydramine Hcl 25 Mg Capsule) 25 mg PO Q4H PRN PRN Reason: pruritus Last Admin: 01/28/24 22:23 Dose: 25 mg Documented By: TU Hydrocortisone (Hydrocortisone 1 % Cream 28.35 Gm Tube) 1 appl TOPICAL BID [facility]; Protocol Last Admin: 01/29/24 08:09 Dose: 1 appl Documented By: CALI Doxycycline Hyclate 100 mg/ (Sodium Chloride) 250 mls @ 166.67 mls/hr IV Q12H [facility] Last Infusion: 01/29/24 05:28 Dose: Infused Documented By: TU Cefepime HCl 2 gm/ Sodium (Chloride) 50 mls @ 100 mls/hr IV Q8H [facility] Last Infusion: 01/29/24 11:14 Dose: Infused Documented By: CALI Magnesium Hydroxide (Milk Of Magnesia 30 Ml Oral.Susp) 30 ml PO DAILY PRN PRN Reason: Constipation Melatonin (Melatonin 3 Mg Tablet) 6 mg PO BEDTIME PRN PRN Reason: Insomnia Oxycodone HCl (Oxycodone Hcl Immed Release 5 Mg Tablet) 5 mg PO Q6H PRN PRN Reason: Pain, Severe (Pain Scale 7-10) Sodium Chloride (0.9 % Sodium Chloride Flush 3 Ml Syringe) 3 ml IVFLUSH QSHIFT [facility] Last Admin: 01/29/24 08:09 Dose: 3 ml Documented By: CALI Labs 01/29/24 07:26 01/29/24 07:26 Labs: Laboratory Results - last 24 hr 01/28/24 01/29/24 14:05 07:26 MCV 93.1 MCH 31.6 MCHC 33.9 RDW 12.0 Plt Count 236 MPV 9.4 Immature Gran % (Auto) 1.2 H Neut % (Auto) 60.4 Lymph % (Auto) 19.7 L [place] % (Auto) 9.7 Eos % (Auto) 8.4 H Baso % (Auto) 0.6 Lymph # (Auto) 1.4 [place] # (Auto) 0.7 Eos # (Auto) 0.6 H Baso # (Auto) 0.0 Abs Immat Gran (auto) 0.08 H Absolute Neuts (auto) 4.2 Absolute Nucleated RBC 0.000 Nucleated RBC % (auto) 0.0 Anion Gap 13 10 L Estim Creat Clear Calc 90.9 104.2 Estimated GFR > 60 > 60 Random Glucose 105 92 Lactic Acid 0.9 Calcium 9.5 8.7 D Total Bilirubin 0.3 AST 16 ALT 21 Alkaline Phosphatase 63 Total Protein 7.0 Albumin 4.0 Assessment and Plan (1) 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 Lovenox Full code Requires ongoing hospitalization for IV antibiotics to treat cellulitis that has failed outpatient therapies along with specialist consultation Quality Stroke Does the patient have a stroke diagnosis?: No VTE Prior VTE?: No VTE Risk Level:: Medical - moderate - high VTE Device Contraindication: Treatment Not Indicated VTE Drug Contraindication: N/A - Med Ordered
[2024-01-29 15:25] VITALS: BP 138/75; PULSE 67; RESP 16; TEMP 36; O2SAT 97
[2024-01-29] MEDS: Doxycycline Hyclate 100 MG in 0.9 % Sodium Chloride 250 ML 166.66 MG IV (15:56)
[2024-01-29 19:03] VITALS: BP 142/72; PULSE 64; RESP 16; TEMP 36.2; O2SAT 96
--- NOTE | 2024-01-29 22:57 | P.CNID_ITS ---
History of Present Illness Data of Consult Service Date: 01/29/24 Requesting physician: Breezy Khan Primary Care Provider: Isra Newman MD HPI Reason for consult: right foot infection He went to beach nine days ago. He stepped on a sea shell and cut his right foot. He stayed in warm sea water. He developed redness and swelling right foot two days later. He was given Bactrim and took that three days or so and not better so came in. He feels feverish as well. Review of Systems 2 Review of Systems: Yes all other systems are reviewed and are negative Musculoskeletal: Musculoskeletal: Reports radiating pain into limb PMFSH Past Medical History Medical History (Updated 01/29/24 @ 23:13 by Polly Mahmood MD) Cellulitis Eczema Tear, knee, medial meniscus Family History Family history: reviewed and not pertinent Surgical History Surgical History History of surgery on lower extremity H/O colonoscopy Social History Social History Household Members: None Housing: House Do you presently have visiting nurse or other home services: No Alcohol intake: current Alcohol intake frequency: 0-2 drinks per day Alcohol type: beer Patient Tobacco Use Status: Never used Tobacco service: No Meds Allergies Allergy/AdvReac Type Severity Reaction Status Date / Time No Known Allergies Allergy Verified 01/28/24 13:24 Active Medications: Current Medications Acetaminophen (Acetaminophen 325 Mg Tablet) 650 mg PO Q6H PRN PRN Reason: Pain, Mild (Pain Scale 1-3), fever or headache Calcium Carbonate (Calcium Carbonate 750 Mg Tab.Chew) 750 mg PO Q4H PRN PRN Reason: Heartburn Diphenhydramine HCl (Diphenhydramine Hcl 25 Mg Capsule) 25 mg PO Q4H PRN PRN Reason: pruritus Last Admin: 01/28/24 22:23 Dose: 25 mg Hydrocortisone (Hydrocortisone 1 % Cream 28.35 Gm Tube) 1 appl TOPICAL BID [facility]; Protocol Last Admin: 01/29/24 20:56 Dose: 1 appl Doxycycline Hyclate 100 mg/ (Sodium Chloride) 250 mls @ 166.67 mls/hr IV Q12H [facility] Last Infusion: 01/29/24 17:31 Dose: Infused Cefepime HCl 2 gm/ Sodium (Chloride) 50 mls @ 100 mls/hr IV Q8H [facility] Last Infusion: 01/29/24 18:40 Dose: Infused Magnesium Hydroxide (Milk Of Magnesia 30 Ml Oral.Susp) 30 ml PO DAILY PRN PRN Reason: Constipation Melatonin (Melatonin 3 Mg Tablet) 6 mg PO BEDTIME PRN PRN Reason: Insomnia Oxycodone HCl (Oxycodone Hcl Immed Release 5 Mg Tablet) 5 mg PO Q6H PRN PRN Reason: Pain, Severe (Pain Scale 7-10) Sodium Chloride (0.9 % Sodium Chloride Flush 3 Ml Syringe) 3 ml IVFLUSH QSHIFT [facility] Last Admin: 01/29/24 20:56 Dose: 3 ml Home Medications ?Medication ?Instructions ?Recorded ?Confirmed ?Last Taken ?Type cephalexin 500 mg capsule 500 mg PO QID 01/28/24 01/28/24 01/28/24 12:00 History Physical Exam 2 Vital Signs: Vital Signs: Last Vital Signs Temp 97.2 F 01/29/24 19:03 Pulse 64 01/29/24 19:03 Resp 16 01/29/24 19:03 BP 142/72 H 01/29/24 19:03 Pulse Ox 96 01/29/24 19:03 O2 Del Method Room Air 01/29/24 19:03 BMI result Body Mass Index 28.5 Const: General: cooperative HEENT: Head: Yes normal to inspection Face and sinus: Yes normal facial exam Mouth: Normal oral and palatal mucosa present Teeth and gingiva: d entition normal Eyes: General: appearance normal, both eyes and all related structures P upils: Equal, round and reactive pupils present Resp: Effort & Inspection: normal respiratory effort Cardio: Rate: regular rate Rhythm: regular rhythm GI: Palpation (GI): Soft to palpation and nontender : General: Yes no CVA tenderness Back/Spine/Pelvis: Back: no CVA tenderness Skin: General skin exam: no rashes or lesions noted Neuro: General: moves all extremities Cranial nerves: Yes Equal, round and reactive pupils present Extrem: Other: scabbing scaly dorsal arearight foot to ankle Psych: Appearance: grossly normal Results Labs 01/29/24 07:26 01/29/24 07:26 Labs: Short CBC 01/29/24 Range/Units 07:26 WBC 6.9 (4.8-10.8) X10*3/uL Hgb 15.2 (14.0-18.0) g/dl Hct 44.8 (42.0-52.0) % Plt Count 236 (160-400) X10*3/uL BMP 01/29/24 07:26 Sodium 139 Potassium 4.1 Chloride 108 Carbon Dioxide 25 BUN 11 Creatinine 0.76 Calcium 8.7 D Microbiology Microbiology Results: Microbiology 01/28/24 14:05 Blood - Venous Blood Culture - Preliminary No growth after 24 hours. 01/28/24 14:05 Blood - Venous Blood Culture - Preliminary No growth after 24 hours. Assessment and Plan (1) Cellulitis: Status: Acute Plan He has possible vibrio vulnificans He has possible staph aureus possibly as well. Bactreim has failed Would agree with Cefepime as well as Doxycycline cover potential vibrio. Keep clean and dry. Possible 3-5 day Cefepime and Doxycycline and then po cephalosporin as well as Doxycycline.
[2024-01-30] MEDS: cefEPime HCl 2 GM in 0.9 % Sodium Chloride 50 ML IV ×2 (02:01→09:11)
[2024-01-30 03:27] VITALS: BP 111/55; PULSE 69; RESP 18; TEMP 36.1; O2SAT 95
[2024-01-30] MEDS: Doxycycline Hyclate 100 MG in 0.9 % Sodium Chloride 250 ML 166.66 MG IV (04:14)
--- NOTE | 2024-01-30 07:19 | PM.PNGS ---
Subjective Subjective Date of Service: 01/30/24 Interval history: Patient states he has significant improvement of his right foot symptoms. Physical Exam Vital Signs: Vital Signs: Last Vital Signs Temp 96.9 F 01/30/24 03:27 Pulse 69 01/30/24 03:27 Resp 18 01/30/24 03:27 BP 111/55 L 01/30/24 03:27 Pulse Ox 95 01/30/24 03:27 O2 Del Method Room Air 01/30/24 03:27 BMI result Body Mass Index 28.5 Extrem: Other: Substantial decrease in edema and erythema. Overlying dorsum and plantar desquamating skin. Significant improvement. Objective Data Active Medications Acetaminophen (Acetaminophen 325 Mg Tablet) 650 mg PO Q6H PRN PRN Reason: Pain, Mild (Pain Scale 1-3), fever or headache Calcium Carbonate (Calcium Carbonate 750 Mg Tab.Chew) 750 mg PO Q4H PRN PRN Reason: Heartburn Diphenhydramine HCl (Diphenhydramine Hcl 25 Mg Capsule) 25 mg PO Q4H PRN PRN Reason: pruritus Last Admin: 01/28/24 22:23 Dose: 25 mg Documented By: TU Hydrocortisone (Hydrocortisone 1 % Cream 28.35 Gm Tube) 1 appl TOPICAL BID [facility]; Protocol Last Admin: 01/29/24 20:56 Dose: 1 appl Documented By: JOURDAN Doxycycline Hyclate 100 mg/ (Sodium Chloride) 250 mls @ 166.67 mls/hr IV Q12H [facility] Last Infusion: 01/30/24 05:49 Dose: Infused Documented By: JOURDAN Cefepime HCl 2 gm/ Sodium (Chloride) 50 mls @ 100 mls/hr IV Q8H [facility] Last Infusion: 01/30/24 02:46 Dose: Infused Documented By: JOURDAN Magnesium Hydroxide (Milk Of Magnesia 30 Ml Oral.Susp) 30 ml PO DAILY PRN PRN Reason: Constipation Melatonin (Melatonin 3 Mg Tablet) 6 mg PO BEDTIME PRN PRN Reason: Insomnia Oxycodone HCl (Oxycodone Hcl Immed Release 5 Mg Tablet) 5 mg PO Q6H PRN PRN Reason: Pain, Severe (Pain Scale 7-10) Sodium Chloride (0.9 % Sodium Chloride Flush 3 Ml Syringe) 3 ml IVFLUSH QSHIFT [facility] Last Admin: 01/29/24 20:56 Dose: 3 ml Documented By: JOURDAN Labs 01/29/24 07:26 01/29/24 07:26 Labs: Laboratory Results - last 24 hr 01/29/24 07:26 MCV 93.1 MCH 31.6 MCHC 33.9 RDW 12.0 Plt Count 236 MPV 9.4 Immature Gran % (Auto) 1.2 H Neut % (Auto) 60.4 Lymph % (Auto) 19.7 L [place] % (Auto) 9.7 Eos % (Auto) 8.4 H Baso % (Auto) 0.6 Lymph # (Auto) 1.4 [place] # (Auto) 0.7 Eos # (Auto) 0.6 H Baso # (Auto) 0.0 Abs Immat Gran (auto) 0.08 H Absolute Neuts (auto) 4.2 Absolute Nucleated RBC 0.000 Nucleated RBC % (auto) 0.0 Anion Gap 10 L Estim Creat Clear Calc 104.2 Estimated GFR > 60 Random Glucose 92 Calcium 8.7 D Microbiology Microbiology Results: Microbiology 01/28/24 14:05 Blood Culture - Preliminary Blood - Venous No growth after 24 hours. 01/28/24 14:05 Blood Culture - Preliminary Blood - Venous No growth after 24 hours. Procedures Date of Service Date of Service: 01/30/24 Progress Note: A&P Assessment and plan (1) Cellulitis: Status: Acute (2) Cellulitis due to Vibrio vulnificus: Status: Acute Plan Continue current plan. Patient can follow-up with me as outpatient once discharged. Time Spent With Patient Time: Total time managing care of this patient today ____ minutes. Quality Stroke Does the patient have a stroke diagnosis?: No VTE Prior VTE?: No VTE Risk Level:: Medical - moderate - high VTE Device Contraindication: Treatment Not Indicated VTE Drug Contraindication: N/A - Med Ordered
[2024-01-30 07:37] VITALS: BP 130/59; PULSE 60; RESP 18; TEMP 36.6; O2SAT 96
[2024-01-30] MEDS: Hydrocortisone 1 % Cream 28.35 GM TUBE 1 APPL TOPICAL (09:10)
[2024-01-30] MEDS: 0.9 % Sodium Chloride Flush 3 ML SYRINGE IVFLUSH (09:11)
--- NOTE | 2024-01-30 10:31 | PM.DS ---
DS: Providers Provider Date of Service: 01/30/24 Date of admission: 01/28/24 18:10 Date of discharge: 01/30/24 Primary care physician: Isra Newman MD Consults: 01/28/24 18:10 Consult to General Surgery Routine Consulting Provider: [facility] General Surgeons Reason for consultation: vibrio infection R foot Consult to Infectious Diseases Routine Consulting Provider: [facility] Infectious Disease Center Reason for consultation: vibrio infection R foot 01/28/24 22:15 Consult to Wound Care Routine Reason for consultation: vibriosis ovelying cellulitis right foot DS: Diagnosis Discharge Diagnosis (1) Cellulitis: Status: Acute (2) Cellulitis due to Vibrio vulnificus: Status: Acute DS: Summary Hospital Course Hospital Course: 63-year-old male with history of eczema but no other significant past medical history presented to the ED earlier today for evaluation of an infection of the right foot. He reports that he was walking on seashells 8 days ago and 2 days later developed and oozing rash between 2 of his toes. He states this then spread in between other toes and began developing redness, mild swelling, and serous drainage from the dorsum of the foot and in between the toes prompting him to present to the urgent care for further evaluation. He was prescribed doxycycline and Keflex which he reports taking as prescribed. He states he was also using Benadryl which he feels did help. States that the area had been improving until this morning when he began experiencing worsening erythema with a purplish hue and increased drainage prompting him to present to the ED for further evaluation. Since arrival, has been mildly hypertensive but vital signs otherwise stable. There is no leukocytosis. Renal function and electrolyte levels normal. Lactic acid 0.9. X-ray of the right foot shows degenerative changes of the hallux valgus but no acute osseous abnormality including evidence of osteomyelitis. Given concerns for vibriosis, has been started on IV doxycycline and ceftriaxone. Hospital course Admitted to general medical floor and started on cefepime and doxycycline. Seen in consultation by Infectious Disease who recommended 3-5 days of IV therapy of same. On day of discharge patient states he has important business and can not stay. He understands the risks of leaving early. Discussed with ID. . . We will order oral doxycycline and Ceftin for 10 days. Patient will follow up with PCP next available Time Attestation Discharge Coordination Time (in mins): 35 Quality: Safe Use of Opioids Does Pt have an Active Cancer Diagnosis on the Problem List?: No Quality: Stroke Does the patient have a stroke diagnosis?: No Physical Exam Vital Signs: Vital Signs: Last Vital Signs Temp 97.8 F 01/30/24 07:37 Pulse 60 01/30/24 07:37 Resp 18 01/30/24 07:37 BP 130/59 L 01/30/24 07:37 Pulse Ox 96 01/30/24 07:37 O2 Del Method Room Air 01/30/24 07:37 BMI result Body Mass Index 28.5 Const: Other: Awake alert no acute distress Resp: Other: Clear to auscultation bilaterally no rales rhonchi or wheezes Cardio: Other: No S4; positive S1-S2; no S3 murmurs rubs or gallops GI: Other: Soft nontender nondistended normoactive bowel sounds Extrem: Other: No edema bilaterally DS: Data Data Completed and Pending Labs on day of discharge: Preliminary micro results at discharge 01/28/24 14:05 Blood Culture - Preliminary Blood - Venous No growth after 24 hours. 01/28/24 14:05 Blood Culture - Preliminary Blood - Venous No growth after 24 hours. Discharge Plan Discharge Anticipated Discharge Date/Time: 01/30/24 10:25 Patient Disposition: Home, Self-Care Discharge Diagnosis: Acute cellulitis right foot Referrals: Isra Newman MD [Primary Care Provider] - 1 Week Macario Darnell MD [Physician] - 1 Week Discharge Medications: New doxycycline monohydrate 100 mg tablet 100 mg PO BID Qty: 20 0RF cefuroxime axetil 500 mg tablet 500 mg PO BID 10 Days Qty: 20 0RF Discontinued cephalexin 500 mg capsule 500 mg PO QID Patient Comments: pt has 1 day remaining of 5 day regimen Discharge Orders: Discharge Order (Routine); Ordered 01/30/24 Ordered By: Breezy Khan Diet: Advance to usual diet Activity on Discharge: No Running or jogging Stand Alone Forms: Patient Portal Discharge page Print Language: Icelandic Activity Restrictions/Additional Instructions: Elevated extremities much as possible. No strenuous activities. Care Plan Goals: Stop cephalexin. Start doxycycline 100 mg twice daily for 10 days along with Ceftin 500 mg twice daily for 10 days Health Concerns: When at home can leave open to air. Cover with dry dressing if wearing footwear Plan of Treatment: Follow up with PCP next available Assessment: See discharge summary
--- NOTE | 2024-01-30 10:44 | MHC.CM.PN ---
Patient medically cleared for dc home self care. Car is in [facility] lot for self transport. RN aware.
== END 2024-01-30 10:54 | disposition home or self-care (01) | DRG 383 ==
LOC: HO.ED 16:18 → HO.EDOVER 18:16 → HO.S3 19:42
PROVIDERS: Physician Assistant Medical; Admitting Provider Physician Assistant; Emergency Provider Internal Medicine; PCP Internal Medicine; Visit Provider Hospitalist
DX: L03.115 Cellulitis of right lower limb (principal); B96.82 Vibrio vulnificus as the cause of diseases classified elsewhere; L30.9 Dermatitis, unspecified
CPT/HCPCS: 36415; 73630; 80048; 80053; 83605; 85025; 87040; 90715; 99285; J0692; J0696

== ENCOUNTER → 2024-01-28 18:10 | Outpatient (BNV) | payer BC, SELFPAY | PROVIDERS: Admitting Provider Physician Assistant; Emergency Provider Internal Medicine; PCP Internal Medicine; Visit Provider Internal Medicine | DX: L03.90 Cellulitis, unspecified (principal) | CPT/HCPCS: 99222 ==

== ENCOUNTER → 2024-01-28 18:10 | Outpatient (BNV) | payer BC, SELFPAY | PROVIDERS: Admitting Provider Physician Assistant; Emergency Provider Internal Medicine; PCP Internal Medicine; Visit Provider Surgery | DX: L03.90 Cellulitis, unspecified (principal); B96.82 Vibrio vulnificus as the cause of diseases classified elsewhere | CPT/HCPCS: 99222; 99231 ==

== ENCOUNTER → 2024-01-28 18:10 | Outpatient (BNV) | payer BC, SELFPAY | PROVIDERS: Admitting Provider Physician Assistant; Emergency Provider Internal Medicine; PCP Internal Medicine; Visit Provider Physician Assistant | DX: L03.90 Cellulitis, unspecified (principal); B96.82 Vibrio vulnificus as the cause of diseases classified elsewhere | CPT/HCPCS: 99222; 99232; 99239 ==

== ENCOUNTER 2024-05-29 16:08 | Outpatient (REF) | payer BC, SELFPAY ==
[2024-05-29 16:21] LABS: MANUAL DIFF FLAG NO
[2024-05-29 16:45] LABS: Basophils Percent Auto 0.6 % (0-2); Eosinophils Absolute Auto 0.1 X10*3/uL (0.0-0.4); Eosinophils Percent Auto 1.4 % (0-4); Hematocrit 47.5 % (42.0-52.0); Hemoglobin 15.7 g/dl (14.0-18.0); Imm Gran Abs Auto 0.06 X10*3/uL (0.00-0.03); Imm Gran Pct Auto 0.9 % (0.0-0.4); Lymphocytes Absolute Auto 1.6 X10*3/uL (1.2-4.9); Lymphocytes Percent Auto 23.2 % (20-40); Mean Corpuscular HGB Conc 33.1 g/dl (31.0-36.0); Mean Corpuscular Hemoglobin 30.8 pg (27.0-33.0); Mean Corpuscular Volume 93.3 fL (80.0-98.0); Mean Platelet Volume 9.2 fL (9.4-12.4); Monocytes Absolute Auto 0.7 X10*3/uL (0.1-1.2); Monocytes Percent Auto 9.8 % (2-11); Neutrophils Absolute Auto 4.5 x10*3/uL (2.0-8.3); Neutrophils Percent Auto 64.1 % (45-73); Platelet Count 253 X10*3/uL (160-400); Red Blood Count 5.09 X10*6/uL (4.60-5.80); Red Cell Distribution Width 12.2 % (11.0-16.0)
[2024-05-29 17:11] LABS: Alanine Aminotransferase 35 U/L (0-40); Albumin Level 4.3 g/dL (3.5-5.0); Alkaline Phosphatase 64 U/L (39-117); Anion Gap 10 (12-20); Aspartate Amino Transferase 27 U/L (5-37); Bilirubin Total 0.3 mg/dL (0.0-1.0); Blood Urea Nitrogen 18 mg/dL (9-16); Carbon Dioxide 29 mmol/L (22-29); Chloride 108 mmol/L (96-108); Cholesterol 213 mg/dL (<200); Estimated Glomerular Filt Rate > 60; Glucose Random 91 mg/dL (60-115); HDL Cholesterol 62 mg/dL (>40); LDL Cholesterol Calculated 129 mg/dL (<100); Potassium 4.5 mmol/L (3.3-5.1); Sodium 142 mmol/L (135-145); Total Protein 7.6 g/dL (6.5-8.0); Triglycerides 114 mg/dL (<150)
[2024-05-29 17:31] LABS: Prostate Specific Antigen Scr 0.91 ng/mL (<0.05-4.0)
[2024-05-29 18:15] LABS: Appearance Urine Clear; Color Urine Yellow; Glucose Urine UA Negative (Negative); Leukocyte Esterase Urine Negative (Negative); Nitrite Urine Negative (Negative); PH 7.5 (5.0-9.0); Specific Gravity - Urine 1.025 (1.005-1.025); Urine Blood Negative (Negative); Urine Ketones Negative (Negative); Urine Protein Negative (Neg-Trace)
== END 2024-05-29 16:09 | disposition home or self-care (01) ==
LOC: HO.LAB 16:08
PROVIDERS: PCP Internal Medicine; Visit Provider Internal Medicine
DX: K21.9 Gastro-esophageal reflux disease without esophagitis (principal); M54.9 Dorsalgia, unspecified; Z12.5 Encounter for screening for malignant neoplasm of prostate; M19.90 Unspecified osteoarthritis, unspecified site
CPT/HCPCS: 36415; 80053; 80061; 81003; 84153; 85025

== ENCOUNTER 2024-07-19 14:36 | Emergency (ER) | payer OTHER, SELFPAY ==
--- NOTE | ~2024-07-19 | CT_ITS ---
CLINICAL HISTORY: L arm numbness w c spine extension CT cervical spine without contrast Comparison: CR/DE/SR - XR CERVICAL SPINE 3V - 04/08/21 10:37 EST Findings: Mild multilevel anterolisthesis/retrolisthesis, degenerative. No fracture. No severe central spinal canal stenosis. Left foraminal stenosis is most prominent at C3/C4, C4/C5 and C6/C7 with moderate to severe stenosis. No epidural hematoma. Normal thickness of the prevertebral soft tissues. The lung apices are clear. Impression: No acute findings. Multilevel moderate to severe left foraminal stenosis, see above. Better characterization can be obtained with nonemergent cervical spine MR. This document has been electronically signed by: Jeanette Arteaga MD on 07/19/2024 15:47:10
[2024-07-19 14:38] VITALS: BP 147/61; PULSE 76; RESP 18; TEMP 37; O2SAT 96; BMI 26.9
--- NOTE | 2024-07-19 14:40 | ED.GENADULT ---
HPI - General Adult General Chief complaint: Extremity Injury, Upper Stated complaint: shoulder numbness Time Seen by Provider: 07/19/24 16:05 Source: patient Limitations: no limitations History of Present Illness ED Provider: Arielle Pizarro PA-C HPI narrative: 64 yo male presents with LUE numbness x1 month, worsening x1 week. Patient states the numbness spans from shoulder to finger tips, which occurs when seated or when he extends his neck. Patient states he will drop objects at times secondary to the numbness. Denies weakness of upper extremity. Patient states he has had numerous musculoskeletal injuries throughout the years involving his left upper extremity and neck. Related Data Previous Rx's ?Medication ?Instructions ?Recorded cefuroxime axetil 500 mg tablet 500 mg PO BID 10 days #20 tabs 01/30/24 doxycycline monohydrate 100 mg 100 mg PO BID #20 tabs 01/30/24 tablet methocarbamol 750 mg tablet 750 mg PO Q8H PRN pain, moderate 07/19/24 #15 tabs methylprednisolone 4 mg tablets in 4 mg PO QAM #21 ea 07/19/24 a dose pack (Medrol (Talha)) Allergies Allergy/AdvReac Type Severity Reaction Status Date / Time No Known Allergies Allergy Verified 07/19/24 14:43 Review of Systems Review of Systems: Yes all other systems are reviewed and are negative Constitutional: Constitutional: Denies fatigue, Denies fever(s) and Denies headache(s) ENT: Denies dizziness, Denies headache(s) and Reports neck pain Cardiovascular: Cardiovascular: Denies chest pain and Denies dyspnea Respiratory: Respiratory: Denies cough and Denies dyspnea Gastrointestinal: Gastrointestinal: Denies nausea and Denies vomiting Musculoskeletal: Musculoskeletal: Denies muscle weakness, Reports neck pain, Reports numbness and Reports radiating pain into limb Neurologic: Denies dizziness, Denies headache(s) and Reports numbness Endocrine: Endocrine: Denies fatigue PMFSH Past Medical History Attestation statement: The following information was validated with the patient. Medical History (Updated 07/19/24 @ 16:43 by ANA Mcgraw) Cellulitis Eczema Tear, knee, medial meniscus Surgical History History of surgery on lower extremity H/O colonoscopy Social History Social History Household Members: None Housing: House Do you presently have visiting nurse or other home services: No Alcohol intake: current Alcohol intake frequency: 0-2 drinks per day Alcohol type: beer Patient Tobacco Use Status: Never used Tobacco Advance Directives: No Advance Directives Information Provided: No service: No Physical Exam ED Vital Signs: Vital Signs - 24 hr 07/19/24 14:38 Temperature 98.6 F Pulse Rate 76 Respiratory Rate 18 Blood Pressure 147/61 H Pulse Oximetry 96 Oxygen Delivery Method Room Air BMI result Body Mass Index 26.9 Const Other: Alert Orientation/consciousness: patient oriented x3 Resp Effort & Inspection: normal respiratory effort Cardio Other: Normal peripheral perfusion Skin Other: Warm dry no rash Neuro General: patient oriented x3, gait normal, no focal motor deficits and CN's II-XI intact bilaterally Extrem Other: Strength 5/5 bilateral upper extremities with resistance, sensation intact Psych Other: Calm cooperative Course Course Course Narrative: This is a Rapid Medical Examination (RME) performed by Will Bertrand PA-C in triage. Full HPI, ROS, assessment and treatment plan per primary provider in the Main ED. 64 yo male here for eval of L arm numbness x1 month, worsening x1 week. reports numbness from shoulder to finger tips which occurs when seated or extending his neck. reports his neck will occasionally lock up . reports symptoms started when he ran into an open door of a vehicle causing his neck to whip back . has had neg xrays in the past. Plan: ct Medical Decision Making Medical Decision Making [facility] Narrative: 64 yo male presents with LUE numbness x1 month, worsening x1 week. Patient states the numbness spans from shoulder to finger tips, which occurs when seated or when he extends his neck. Patient states he will drop objects at times secondary to the numbness. Denies weakness of upper extremity. Patient states he has had numerous musculoskeletal injuries throughout the years involving his left upper extremity and neck. Problem: Chronic neck pain History: Per patient I have considered the following differential diagnoses: Herniated disc, degenerative disc disease, compression fracture, cervical radiculopathy Plan: CT scan was ordered from triage, the patient has significant degenerative changes the length of the cervical spine with nerve root impingement. He requires an outpatient MRI, I offered to to try an order the MRI now, the patient will prefer to follow up with primary care and have it scheduled as an outpatient. In the meantime we will send with a steroid taper and a muscle relaxant. Patient was in agreement with the plan. I have independently reviewed the following tests: CT cervical: Findings: Mild multilevel anterolisthesis/retrolisthesis, degenerative. No fracture. No severe central spinal canal stenosis. Left foraminal stenosis is most prominent at C3/C4, C4/C5 and C6/C7 with moderate to severe stenosis. No epidural hematoma. Normal thickness of the prevertebral soft tissues. The lung apices are clear. Impression: No acute findings. Multilevel moderate to severe left foraminal stenosis, see above. Better characterization can be obtained with nonemergent cervical spine MR. Discharge Plan Discharge Clinical Impression: Left cervical radiculopathy Patient Disposition: Home, Self-Care Instructions: Cervical Radiculopathy (ED) Additional Instructions: You were found to have significant degenerative changes in your cervical spine, that is causing inflammation of the nerve roots, causing your numbness and tingling. This is called cervical radiculopathy. See home care instructions. You need an outpatient MRI, and physical therapy. We will be starting you on a steroid taper and a muscle relaxant. Methocarbamol is the muscle relaxant, to note it will cause drowsiness, do not drive or operate machinery while taking this medication. You need to call your primary care provider to set up a follow up appointment to discuss these additional interventions. Prescriptions: New methylprednisolone [Medrol (Talha)] 4 mg tablets,dose pack 4 mg PO QAM Qty: 21 0RF Rx Instructions: Take per package instructions methocarbamol 750 mg tablet 750 mg PO Q8H PRN (Reason: pain, moderate) Qty: 15 0RF No Action doxycycline monohydrate 100 mg tablet 100 mg PO BID Qty: 20 0RF cefuroxime axetil 500 mg tablet 500 mg PO BID 10 Days Qty: 20 0RF Print Language: Kinyarwanda
--- OUTSIDE RECORDS SUMMARY | 2024-07-19 16:14 | XMS_ITS | Clinical Summary ---
Author Organization [facility] ity Address [address] [place] [address] Care Team Providers Care Lock Expert Name Role Phone Unavailable Primary Care Provider Unavailabl e Social History Tobacco Use Types Packs/Day Years Used Date Smoking Tobacco: Never Assessed Sex and Gender Information Value Date Recorded Sex Assigned at Not on file Legal Sex Male 2:46 PM EST Gender Identity Not on file Sexual Orientation Not on file Plan of Treatment Health Maintenance Due Date Last Done Comments DTaP,Tdap,and Td Vaccines (1 - Tdap) 1978 Pneumococcal Vaccine: 50+ Ye ars (1 of 1 - PCV) 2009 Zoster Vaccines (1 of 2) 2009 COVID-19 Vaccine ( - 2023-2 5 season) 2024 Influenza Vaccine (#1) 2024 RSV Immunization Patients 60 + Years Old (1 - 1-dose 75+ series) 2034 HIB Vaccines Aged Out No longer eligi ble based on patient's age to complete this topic HPV Vaccines Aged Out No longer eligi ble based on patient's age to complete this topic Hepatitis A Vaccines Aged Out No long er eligible based on patient's age to complete this topic Hepatitis B Vaccines Aged Out No long er eligible based on patient's age to complete this topic IPV Vaccines Aged Out No longer eligi ble based on patient's age to complete this topic MMR Vaccines Aged Out No longer eligi ble based on patient's age to complete this topic Meningococcal ACWY Vaccine Aged Out N o longer eligible based on patient's age to complete this topic Meningococcal B Vacine Aged Out No lo nger eligible based on patient's age to complete this topic Pneumococcal Vaccine: Pediat rics (0 to 5 Years) and At-Risk Patients (6 to 64 Years) Aged Out No longer eligible b ased on patient's age to complete this topic RSV Immunization Patients Un eulogio 20 months Aged Out No longer eligible b ased on patient's age to complete this topic Varicella Vaccines Aged Out No longer eligible based on patient's age to complete this topic
--- OUTSIDE RECORDS SUMMARY | 2024-07-19 16:14 | XMS_ITS ---
Author Organization [facility] Address [address] [place] [address] Care Team Providers Care Plastic Process Technician Name Role Phone Isra Newman MD Primary Care Provider Rashaun Bill Jr Unavailable [phone] REASON FOR VISIT screening Encounters Encounter Location Date Provider Diagnosis [facility] [place] [address] [place] [phone] 07/24/2023 Rashaun Sotelo Jr Encounter for screening colonoscopy Z12.11 Assessments Encounter Date Diagnosis (ICD Code) Assessment Notes Treatment Notes Treatment Clinical Notes Section Notes 07/24/2023 Encounter for screening colonoscopy (ICD-10 - Z12.11) Plan Of Treatment No Information Progress Notes * CASH PATELDOB: 9 (64 yo M)Acc No.[id number]:07/24/2023 COLON WITH MAC Patient:CASH LUONG Provider:?Rashanu Sotelo MD :1960???Age:63 Y???Sex:Male Marito e:07/24/2023 Address:[address] [place], [place] [phone] Pcp:Isra Newman MD Subjective: * Chief Complaints: * ???1. Screening. * Medical History:? Objective: * Vitals:? Assessment: * Assessment: 1.?Encounter for screening c olonoscopy - Z12.11 (Primary)??? Plan: * Treatment: * Procedure Codes:?74203 DIAGN OSTIC COLONOSCOPY * * The named appointment provid er may or may not be the originator of this progress note, and it is not deemed complete until electronically signed by the appointment provider. Sign off status: Pending * Provider:?Rashaun Sotelo MD Date:?0 07/24/2023 Generated for Lory guzman/Isabel/Ravi on:?07/19/2024 04:13 PM EST
--- OUTSIDE RECORDS SUMMARY | 2024-07-19 16:15 | XMS_ITS ---
Author Organization [facility] Address [address] [place] [phone] Care Team Providers Care Dinkey Engine Firer/Fireman Name Role Phone Trent SWEET, Isra Primary Care Provider Rashaun Bill Jr Unavailable REASON FOR VISIT screening Encounters Encounter Location Date Provider Diagnosis [facility] [address] [place], [place] [phone] 06/19/2023 Rashaun Sotelo Jr Plan Of Treatment No Information Progress Notes * CASH PATELDOB: 9 (64 yo M)Acc No.[id number]:06/19/2023 COLON WITH MAC Patient:?CASH PATEL Provider:?Rashaun Sotelo MD :1960???Age:63 Y???Sex:Male Marito e:06/19/2023 Address:[address] [place], [place] [phone] Pcp:Isra Newman MD Subjective: * Chief Complaints: * ???1. Screening. * Medical History:? Objective: * Vitals:? Assessment: Plan: * Treatment: * * The named appointment provid er may or may not be the originator of this progress note, and it is not deemed complete until electronically signed by the appointment provider. Sign off status: Pending * Provider:?Rashaun Sotelo MD Date:?0 06/19/2023 Generated for Alixi ng/Famichaelg/eTransmitting on:?07/19/2024 04:14 PM EST
--- OUTSIDE RECORDS SUMMARY | 2024-07-19 16:15 | XMS_ITS | Patient Health Record ---
Author Organization [facility] Address [address] [place] [address] Care Team Providers Care Prior Authorization Technician Name Role Phone Isra Newman MD Primary Care Provider Rashaun Bill Jr Unavailable [phone] Allergies No Known Allergies Reason For Referral No Information Medications Medication SIG (Take, Route, Frequency, Duration) Notes Start Date End Date Status MiraLax (colon prep) 8.3 ounce ((238) grams mixed with Gatorade or Crystal Light orally begin at 5:00 p.m. the day before the procedure for 1 day 06/04/2023 Active Immunizations Vaccine Route Administration Date Status Comme nts Influenza Unknown 06/04/2023 Refused Problems Problem Type SNOMED Code ICD Code Onset Dates Problem Status W/U Status Risk Notes Problem 780490854 Colon cancer screening (Z12.11) Active confirmed Problem 079738924 Encounter for other preprocedural examination (Z01.818) Active confirmed Problem 957215195 FH: colon cancer (Z80.0) Active confirmed Encounters Encounter Location Date Provider Diagnosis [facility] Out[facility] [address] [place], [place] [phone] 07/24/2023 Rashaun Sotelo Jr Encounter for screening colonoscopy Z12.11 Assessments Encounter Date Diagnosis (ICD Code) Assessment Notes Treatment Notes Treatment Clinical Notes Section Notes 07/24/2023 Encounter for screening colonoscopy (ICD-10 - Z12.11) Plan Of Treatment Future Test Test Name Order Date COLONOSCOPY 04/03/2013 COLONOSCOPY 06/04/2023 Insurance Providers Payer Name Payer Address Payer Phone Subscriber Number Group Number Insured Name Patient Relationship to Insured Coverage Start Date Coverage End Date [facility] [employer] [address] [place] [address] [phone] [id number] CASH PATEL Self - patient is the insured Medical (General) History Medical History History ICD Code Colonoscopy 06/27, tubular adenoma, five- year followup Surgical History Surgery Date(Month/Year) repaired artery in right leg meniscus repair in left knee
--- OUTSIDE RECORDS SUMMARY | 2024-07-19 16:15 | XMS_ITS ---
Author Organization [facility] Address [address] [place] [phone] Care Team Providers Care Church History Teacher Name Role Phone Isra Newman MD Primary Care Provider Unavaila Rashaun Sarmiento Jr Unavailable REASON FOR VISIT [facility] NURSE Encounters Encounter Location Date Provider Diagnosis [facility] [address] [place] [phone] 06/15/2023 Rashaun Sotelo Jr Plan Of Treatment No Information Progress Notes * JORGECESARALLDOB: 9 (63 yo M)Acc No.[id number]:06/15/2023 Patient:?CASH PATEL :1960???Age:63 Y???Sex:Male Address:[address] [place] [address], [address] * true * Date:? Generated for Lory guzman/Isabel/eTransmitting on:?07/19/2024 04:14 PM EST
[2024-07-19 16:46] VITALS: BP 148/74; PULSE 58; RESP 20; TEMP 36.7; O2SAT 98
[2024-07-19 16:58] VITALS: BP 148/74; PULSE 58; RESP 20; TEMP 36.7; O2SAT 98
== END 2024-07-19 16:58 | disposition home or self-care (01) ==
PROVIDERS: Emergency Provider Emergency Medicine Emergency Medical Services; PCP Internal Medicine
DX: M54.12 Radiculopathy, cervical region (principal); R20.0 Anesthesia of skin
CPT/HCPCS: 72125; 99284

== ENCOUNTER → 2024-07-19 14:41 | Outpatient (BNV) | payer BC, SELFPAY | PROVIDERS: PCP Internal Medicine; Visit Provider Radiology Diagnostic Radiology | DX: M48.02 Spinal stenosis, cervical region (principal) | CPT/HCPCS: 72125 ==

== ENCOUNTER → 2024-07-24 09:05 | Outpatient (BNVA) | payer OTHER, SELFPAY | PROVIDERS: PCP Internal Medicine; Visit Provider Physician Assistant Medical | DX: M54.2 Cervicalgia (principal) | CPT/HCPCS: 99202 ==

== ENCOUNTER → 2024-07-30 09:05 | Outpatient (BNVA) | payer OTHER, SELFPAY | PROVIDERS: PCP Internal Medicine; Visit Provider Physician Assistant Medical | DX: M54.2 Cervicalgia (principal) | CPT/HCPCS: 99213 ==

== ENCOUNTER → 2024-08-20 15:46 | Outpatient (BNVA) | payer OTHER, SELFPAY | PROVIDERS: PCP Internal Medicine; Visit Provider Physician Assistant Medical | DX: M54.2 Cervicalgia (principal) | CPT/HCPCS: 99213 ==

== ENCOUNTER → 2024-09-10 15:45 | Outpatient (BNVA) | payer OTHER, SELFPAY | PROVIDERS: PCP Internal Medicine; Visit Provider Physician Assistant Medical | DX: M54.2 Cervicalgia (principal) | CPT/HCPCS: 99213 ==

== ENCOUNTER 2024-09-25 07:04 | Outpatient (RCR) | payer OTHER, BC, SELFPAY ==
--- NOTE | 2024-07-29 12:26 | MHC.PT.EP ---
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 Pt exhibits history of whiplash like trauma to the head/neck when bumping his head into an open truck door when he was wearing a hat. Pt had CT neck on 07/19/24 see report above. Pt exhibits decreased cervical ROM, impaired UE AROM, decreased sitting/driving/sleeping/movement tolerance. Pt with history of chronic neck pain, history of past presence of parathesias when working overhead but was intermittent before recent history. Pt also reports need to have L RTC repaired due to hx partial tears. Pt exhibits good candidacy for PT based on motivation and history of sx. Post initial evaluation, pt was trialed with manual c-tx in effort to centralize L UE with report of some reduction of sx from height of hand to above elbow/proximal shoulder. Frequency and Duration: The patient will be seen 2x/week x 4 weeks Short Term Goals: 1. Pt will demonstrate centralization of sx to the height of the elbow. (IR: sx radiating to hand near constant sx). 2. Pt will demonstrate reduction in neck pain by 50%. (IR: at times very high -01/21). 3. Pt will demonstrate improved cervical L rotation AROM. (IR: 40 degrees, sx radiating down the arm). 4. Pt will demonstrate improved tolerance for L position during sleep. (IR: unable, causes sx radiating down L UE). Driver Medic Goals: 1. Centralization of radicular sx to the CS. (IR: sx radiating down to entire hand near constant in nature). 2. NDI score improved by at least 50%. 3. Pt will demonstrate strength L>R tricep strength to 5/5 B. (IR: L 5/5, R 4/5, guarded report hx R sciatica sx). 4. Pt will demonstrate good body mechanics upon RTW full tasks. (IR: limited activity in workshop due to sx). 5. Pt will demonstrate improved 75% cervical AROM all planes without surge of radiating L UE sx. (IR: all movement causes radiating sx down L UE, R periscap.). Treatment Plan: Modalities to reduce pain, spasms and effusion. Manual therapy to restore motion and function. Therapeutic exercise to improve strength and flexibility. Neuromuscular re-education for posture and balance. Therapeutic activities to return to functional activities of daily living. Electronically signed by: Mary Alarcon, PT, DPT Please sign and return to therapist. Thank you for your referral.
--- NOTE | 2024-08-14 10:27 | MHC.PT.OD ---
[facility] [place] Office [place] Office [place] Office [address] Vicenta Palacios [address] [phone] F: [phone] F: [phone] F: [phone] F: [phone] Physical Therapy Daily Note Diagnosis: Cervicalgia, onset: early Jun, 2-3x/week x 4-6 weeks, date of referral 07/24/24 by Elio Kennedy PA-C - [facility]- Phone ext [phone], fax ext [phone] Date of Surgery: Date of Evaluation: 07/28/24 Date of Treatment: 08/14/24 Treatments to Date: Cancellations to Date: No Shows to Date: Authorized Visits: 7 Insurance End Date: Precautions/ Contraindications:history of chronic neck pain, Subjective: Doing better overall. Pain Score and Location: -07/21 Objective Flowsheet: Tests & Measures Seated flexion 40 degrees Seated ext 55 degrees L rotation 80 degrees R rotation 70 degrees sx trigger R periscapular strength L 145 degrees L abduction 130 degrees L side-bend 25 degrees R side-bend 20 degrees Exercises Review of standing door chest stretch x 20 sec hold x 4R. Review of upper trap and levator scap stretches x 20 sec hold x 4R. Isometric scapular retraction x 2 sets 10R. Review of cervical stretches/HEP program/ importance of changing position. Education re: postural impact to sx, goals of PT, postures, HEP program. IASTM to bilateral L>R UT and sub-occipital musculature #7 in effort to increase tissue extensibility with erythema response noted. Modalities Bhatia portable C-tx unit set static setting 18# pressure in effort to centralize UE sx to target C6/C7 level and reduce neck pain. Vertebral artery (-) at time of eval x 20 minutes in effort to increase tissue extensibility/reduce sx. Assessment: 08/14/24: Pt has attended 7 sessions to date demonstrating advancements in ROM, reduction in severity/intensity/frequency of B radicular sx. In recent days he has reported reduction overall, he continues to report worse sx in his L UE than his R (hx RTC compromise in L UE). He reports tingling which radiates to his hands, mostly C5/C6 distribution. At start of care he was unable to lie on his R side (now is sleeping much better and can lie on his R side, his preferred position. He reported intolerance for any overhead work. 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 He reports overall gain in tolerance for lifting his arm but continues to express sx which radiate down B UE when doing so but states it now takes a few minutes vs before was near instant to a seconds to occur. He can reduce his sx with change in position and active cervical flexion. He has been receiving cervical mechanical traction and STM with positive response. He has come off of all anti-inflammatories and muscle relaxers. He has been educated in HEP and issued GTB to adddress periscap and RTC strength. He notes improvement in L UE ROM/strength as well, I notice I can lift better with this arm when before I couldnt. He will benefit from additional PT 2x/week x 4 more weeks of PT with goals to progress his stabilization/cuff/upper back/neck strength and work to further reduce presence of radicular sx. He is very motivated and has good compliance with therapy activites/instruction/education. 08/11/24; Pt expressing intermittent radiating sx in either UE, relief with IASTM and traction. PT able to complete GTB resistance without surge of sx. 08/07/24: Pt reports flare of symptoms overnight due to increased workload. Pt able to complete exercises without significant flare of sx. Positive response to exercises. 08/04/24: Pt reports he is 80% better overall, continues to be very active in overhead work, physical labor. Pt was trialed with mechanical C-tx with good tolerance. Pt issued GTB for home program (rows,ext/ER) with no surge of UE sx. Pt able to perform UE strength with positive response). 07/31/24: Pt reports he has been having positive gains with now taking muscle relaxer and ibuprofen, had first night of full sleep last night. Positive response to manual C-tx reported. Erythema response noted L>R UT region. 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 Pt exhibits history of whiplash like trauma to the head/neck when bumping his head into an open truck door when he was wearing a hat. Pt had CT neck on 07/19/24 see report above. Pt exhibits decreased cervical ROM, impaired UE AROM, decreased sitting/driving/sleeping/movement tolerance. Pt with history of chronic neck pain, history of past presence of parathesias when working overhead but was intermittent before recent history. Pt also reports need to have L RTC repaired due to hx partial tears. Pt exhibits good candidacy for PT based on motivation and history of sx. Post initial evaluation, pt was trialed with manual c-tx in effort to centralize L UE with report of some reduction of sx from height of hand to above elbow/proximal shoulder. [ End ] PT Plan: 2-x/week x 4 weeks, assess response to manual C-tx, IASTM/STM to L>R UT, Short Term Goals: 1. Pt will demonstrate centralization of sx to the height of the elbow. (IR: sx radiating to hand near constant sx). 2. Pt will demonstrate reduction in neck pain by 50%. (IR: at times very high 8-9/10). 3. Pt will demonstrate improved cervical L rotation AROM. (IR: 40 degrees, sx radiating down the arm). 4. Pt will demonstrate improved tolerance for L position during sleep. (IR: unable, causes sx radiating down L UE). Early Intervention Specialist Goals: 1. Centralization of radicular sx to the CS. (IR: sx radiating down to entire hand near constant in nature). 2. NDI score improved by at least 50%. 3. Pt will demonstrate strength L>R tricep strength to 5/5 B. (IR: L 5/5, R 4/5, guarded report hx R sciatica sx). 4. Pt will demonstrate good body mechanics upon RTW full tasks. (IR: limited activity in workshop due to sx). 5. Pt will demonstrate improved 75% cervical AROM all planes without surge of radiating L UE sx. (IR: all movement causes radiating sx down L UE, R periscap.). Electronically signed by: Mary Alarcon, PT, DPT
== END 2024-11-04 07:43 | disposition home or self-care (01) ==
LOC: HO.PTS 07:04
PROVIDERS: PCP Internal Medicine; Visit Provider Physician Assistant Medical
DX: M54.2 Cervicalgia (principal)
CPT/HCPCS: 97012; 97110; 97140; 97161

== ENCOUNTER 2024-10-28 13:03 | Outpatient (AMB) | payer BC, SELFPAY ==
--- NOTE | 2024-10-28 13:07 | A.OFFPC_ITS ---
Vital Signs 3 10/28/24 13:10 Height 5 ft 10 in Weight 82.1 kg BMI 26.0 Intake Visit Reasons: Infection Insurance Adviser Required: No Accompanied by: Self / Same As Patient Allergies No Known Allergies Allergy (Verified 10/28/24 13:44) HPI HPI Comments 2 History of Present Illness0 Details 64-year-old male with history of vibrio infection complicated by cellulitis requiring IV antibiotics 01/2024 presents to the office today for evaluation and to establish care. He reports that he has had a cyst on his back that had been tiny appearing and then disappearing. However over the last 10 days or so, has significantly increased in size. He did present to an urgent care 1 week ago and had an I and D performed with minimal drainage. He was also given a 7 day supply of Bactrim which he completed. He denies any improvement with the antibiotic and this has significantly increased in size. There is purulent drainage. He is also reporting purulent drainage. There is also pruritus. He has been using tea tree oil on the area. No fevers or chills. ROS: General: No fevers, malaise, unintentional weight loss Cardiovascular: No chest pain, palpitations, or leg edema Respiratory: No shortness of breath, wheezing, cough MSK: No myalgia, back pain Neuro: No headaches, weakness, paresthesias Skin: see hpi EXAM: Constitutional - Awake and Alert, No apparent distress Eyes - PERRL Cardiovascular - S1S2, RRR, No edema Respiratory - Normal lung expansion, Normal respiratory effort, No respiratory distress, CTA bilaterally Extremities - no calf tenderness bilaterally, no swelling Skin - Warm/Dry. Large raised fluctuance area/abscess midback with surrounding induration and erythema about the size of a grapefruit Neurological - Alert & oriented x3 Psychological - Appropriate affect [facility] History Cellulitis Eczema Tear, knee, medial meniscus Surgical History History of surgery on lower extremity H/O colonoscopy Social History Household Members: None Housing: House Do you presently have visiting nurse or other home services: No Alcohol intake: current Alcohol intake frequency: 0-2 drinks per day Alcohol type: beer Patient Tobacco Use Status: Never used Tobacco service: No Questionnaire PHQ-9 Over the last 2 weeks, how often have you been bothered by any of the following problems? 1. Little interest or pleasure in doing things: several days 2. Feeling down, depressed, or hopeless: not at all 3. Trouble falling or staying asleep, or sleeping too much: several days 4. Feeling tired or having little energy: several days 5. Poor appetite or overeating: not at all 6. Feeling bad about yourself - or that you are a failure or have let yourself or your family down: not at all 7. Trouble concentrating on things, such as reading the newspaper or watching television: not at all 8. Moving or speaking so slowly that other people could have noticed. Or the opposite - being so fidgety or restless that you have been moving around a lot more than usual: not at all 9. Thoughts that you would be better off or of hurting yourself in some way: not at all Total score: 3 Source: Developed by Drs. Mick Gama, Francesca Ruano, Daron Geller and colleagues, with an educational arnel from [employer]. Thrive Questionnaire Date Thrive assessed: 10/28/24 I am a: Patient What is your living situation today?: I have a steady place to live Within the past 12 months, did the food you bought not last and you didn't have the money to get more?: Never true Within the past 12 months, did you worry whether your food would run out before you got money to buy more?: Never true Do you have trouble paying for medicines?: No Do you have trouble getting transportation to medical appointments?: No Do you have trouble paying your heating and electricity bill?: No Do you have trouble taking care of your child, family member or friend?: No Do you have trouble with day-to-day activities such as bathing, preparing meals, shopping, managing finances, etc.?: No Are you currently unemployed and looking for a job?: No Are you interested in more education?: No Please select the resources that you would like help with: None THRIVE Score: 0 MURIEL-7 AMB Questionnaire MURIEL-7 Date MURIEL - 7 assessed: 10/28/24 Feeling nervous, anxious, or on edge: 0 = Not at all Not being able to stop or control worryin = Not at all Worrying too much about different things: 0 = Not at all Trouble relaxin = Not at all Being so restless that it is hard to sit still: 0 = Not at all Becoming easily annoyed or irritable: 0 = Not at all Feeling afraid as if something awful might happen: 0 = Not at all Total MURIEL-7 score (0-4 normal; 5-9 mild; 10-14 moderate; 15-21 severe): 0 Source: Developed by Drs. Mick Gama, Francesca Ruano, Daron Geller and colleagues, with an educational arnel from [employer]. Physical exam (Primary Care) BMI result Body Mass Index 26.0 Tobacco/Smoking Status: Tobacco use Status Patient Tobacco Use Status Never used Tobacco 10/28/24 13:09 PHQ-9: PHQ-9 Score PHQ-9: Total score 3 10/28/24 13:33 Thrive Assessment: Date of Thrive Assessment Date Thrive assessed 10/28/24 10/28/24 13:33 Coding Level of Care Code New Pt Level 4 (01234) Diagnoses Cellulitis and abscess of trunk L03.319; L02.219 Assessment & Plan Assessment & Plan (1) Cellulitis and abscess of trunk: Code(s): L03.319 - Cellulitis of trunk, unspecified; L02.219 - Cutaneous abscess of trunk, unspecified Category: Medical Plan: Failed PO bactrim, worsening. Advised to present to the ED for further evaluation and management, consideration for labs, I&D, and possible IV abx given worsening symptoms despite po bactrim. VSS, no sepsis suspected. Plan Present to ed for evaluation
[2024-10-28 13:10] VITALS: BMI 26.0
--- OUTSIDE RECORDS SUMMARY | 2024-10-28 14:47 | XMS_ITS | Clinical Summary ---
Author Organization [facility] ity Address [address] [place] [address] Care Team Providers Care Staff Development Nurse Name Role Phone Unavailable Primary Care Provider [...] - 2023-2 5 season) 2024 Influenza Vaccine (Season Ended) 2025 RSV Immunization Adult Patie nts (1 - 1-dose 75+ series) 2034 HIB [...] age to complete this topic Meningococcal B Vaccine Aged Out No l onger eligible based on patient's age to complete [...]
== END 2024-10-28 13:34 | disposition home or self-care (01) ==
PROVIDERS: PCP Internal Medicine; Visit Provider Physician Assistant
DX: L03.319 Cellulitis of trunk, unspecified (principal); L02.219 Cutaneous abscess of trunk, unspecified

== ENCOUNTER → 2024-10-28 13:03 | Outpatient (BNVA) | payer BC, SELFPAY | PROVIDERS: PCP Internal Medicine; Visit Provider Physician Assistant ==

== ENCOUNTER 2024-10-28 13:33 | Emergency (ER) | payer BC, SELFPAY ==
--- NOTE | ~2024-10-28 | CT_ITS ---
CLINICAL HISTORY: large back mass abscess CT chest with contrast Comparison: None provided Findings: The heart is normal size. The visualized thyroid and mediastinum are unremarkable. No consolidation or effusion. There are small pulmonary nodules, i.e., 3.2 mm in the right upper lobe series 4, image 37. The visualized upper abdomen is unremarkable. 2.5 x 2.8 cm subcutaneous mass of the left lower back with central hypodense area and surrounding fat stranding axial image 55. The bones are intact. IMPRESSION: Subcutaneous lesion of the left lower back could represent an abscess. Tissue sampling is recommended. Small pulmonary nodules. Fleischner Society 2017 Guidelines for incidentally detected indeterminate nodules in persons 35 years of age or older. Single Solid Nodules: 5 mm or smaller nodules need no follow-up in low risk, and [address] follow-up is optional in high risk patients. 6-8 mm nodules have optional [address] follow-up in low risk, and 6-[address] follow-up followed by 18-[address] follow-up if no change in high risk patients. 9 mm or larger nodules should consider CT, PET/CT, or biopsy at 3 months regardless of patient risk. Multiple Solid Nodules: 5 mm or smaller nodules need no follow-up in low risk, and [address] follow-up is optional in high risk patients. 6-8 mm nodules need 3-[address] follow-up followed by an optional 18-[address] follow-up regardless of patient risk. 9 mm or larger nodules should consider 3-[address] follow-up. For low risk 18-24 month follow-up is optional, whereas for high risk it is needed. Single Ground Glass Nodules: 5 mm or smaller nodules need no followup 6 mm and larger nodules need CT at 6-12 months to confirm persistence, then CT every 2 years until 5 years Single Subsolid Nodules: 5 mm or smaller nodules need no followup 6 mm and larger nodules need CT at 3-6 months to confirm persistence. If no change and solid component /T/lt;6 mm, then CT every year until 5 years Multiple Ground Glass or Subsolid Nodules: 5 mm or smaller nodules need CT at 3-6 months. If stable, optional CT at 2 and 4 years. 6 mm or larger nodules need CT at 3-6 months. Subsequent management based on most suspicious nodule This document has been electronically signed by: Prema Burdick MD on 10/28/2024 18:02:04
[2024-10-28 13:43] VITALS: BP 136/78; PULSE 91; RESP 18; TEMP 36.5; O2SAT 95; BMI 26.4
--- NOTE | 2024-10-28 13:46 | ED.GENADULT ---
HPI - General Adult General Chief complaint: Skin/Abscess/Foreign Body Stated complaint: Leaking Cyst on back Time Seen by Provider: 10/28/24 14:18 Source: patient Mode of arrival: ambulatory Limitations: no limitations History of Present Illness ED Provider: Eva Tripp PA-C HPI narrative: Patient is a 64 year old assigned male at with a history of a large cyst on his trunk presenting to the emergency department today with an abscess. Patient states that he has had this cyst on his trunk / back for 6 years but over the last 1 week it has begun to drain and become painful. Patient states that he was already evaluated and placed on antibiotics but it continues to worsen. Patient denies any dizziness, lightheadedness, abdominal pain, nausea, vomiting, fever, chills, blurry vision, double vision, loss of vision, chest pain, difficulty breathing, shortness of breath, back pain, night sweats, pain with urination, increased urinary frequency, increased urinary urgency, blood in his urine or stool, syncope or a near syncopal episode, recent trauma or falls, bowel incontinence, bladder incontinence, or any other complaints at this time. Onset (ago): week(s) (1) Relieving factors: none Exacerbating factors: none Associated symptoms: denies other symptoms Treatments prior to arrival: other (Antibiotic) Related Data Previous Rx's ?Medication ?Instructions ?Recorded cephalexin 500 mg capsule 500 mg PO Q6H 7 days #28 caps 10/28/24 Allergies Allergy/AdvReac Type Severity Reaction Status Date / Time No Known Allergies Allergy Verified 10/28/24 13:44 Review of Systems Constitutional: Constitutional: Reports no additional constitutional complaints, Denies chills, Denies fever(s) and Denies night sweats Eyes: Eyes: Reports no additional eye complaints, Denies blurry vision, Denies change in vision, Denies diplopia, Denies eye discharge, Denies loss of vision and Denies eye pain ENT: Denies dizziness Cardiovascular: Cardiovascular: Reports no additional cardiovascular complaints, Denies chest pain, Denies lightheadedness, Denies Loss of Consciousness and Denies dyspnea Respiratory: Respiratory: Reports no additional respiratory complaints and Denies dyspnea Gastrointestinal: Gastrointestinal: Reports no additional gastrointestinal complaints, Denies abdominal pain, Denies melena, Denies hematochezia, Denies change in bowel habits and Denies change in stool character Genitourinary: Genitourinary: Reports no additional male genitourinary complaints, Denies hematuria, Denies oliguria, Denies difficulty urinating, Denies dysuria, Denies urinary frequency, Denies urinary hesitancy, Denies urinary incontinence and Denies urinary urgency Musculoskeletal: Musculoskeletal: Reports no additional musculoskeletal complaints, Denies numbness and Denies tingling Integumentary/Breasts: Comments: Abscess / cyst of back Neurologic: Denies dizziness, Denies loss of vision, Denies numbness and Denies tingling Psychiatric: Psychiatric: Reports no additional psychiatric complaints Endocrine: Endocrine: Reports no additional endocrine complaints Hematologic/Lymphatic: Hematologic/Lymphatic: Reports no additional hematologic/lymphatic complaints Allergic/Immunologic: Allergic/Immunologic: Reports no additional allergic/immunologic complaints PMFSH Past Medical History Attestation statement: The following information was validated with the patient. Source: old records reviewed and nursing notes reviewed Medical History Cellulitis Eczema Tear, knee, medial meniscus Surgical History History of surgery on lower extremity H/O colonoscopy Social History Social History Household Members: None Housing: House Do you presently have visiting nurse or other home services: No Alcohol intake: current Alcohol intake frequency: holidays/special occasions only Alcohol type: beer Patient Tobacco Use Status: Never used Tobacco Smoked in Last 30 Days: No Use of substances other than those prescribed or required for medical reasons: No Advance Directives: No Advance Directives Information Provided: Yes service: No Physical Exam ED Vital Signs: Vital Signs - 24 hr 10/28/24 13:43 10/28/24 15:04 10/28/24 16:24 Temperature 97.7 F Pulse Rate 91 71 71 Respiratory Rate 18 18 18 Blood Pressure 136/78 123/55 L 123/55 L Pulse Oximetry 95 94 94 Oxygen Delivery Method Room Air Room Air Room Air 10/28/24 18:16 Temperature 98.5 F Pulse Rate 76 Respiratory Rate 18 Blood Pressure 125/60 Pulse Oximetry 94 Oxygen Delivery Method Room Air BMI result Body Mass Index 26.4 Const General: cooperative, no acute distress, alert and awake Nutritional Appearance: well nourished Orientation/consciousness: patient oriented x3 HENMT Head: Yes normal to inspection and Yes atraumatic Ears: hearing grossly normal bilaterally and external ears normal General nose exam: Normal external nose present, no nasal discharge noted and no epistaxis Face and sinus: Yes normal facial exam, No abrasion and No laceration Mouth: Normal oral and palatal mucosa present, no drooling and no muffled voice Eyes General: appearance normal, both eyes and all related structures Periorbital: periorbital findings normal Eyelids: Yes eyelids normal Conjunctivae: conjunctivae normal Pupils: Equal, round and reactive pupils present EOM: EOMs intact bilaterally Neck Neck: Yes normal visual inspection, Yes full ROM and Yes no lymphadenopathy Resp Effort & Inspection: normal respiratory effort and able to speak in complete sentences Back/Spine/Pelvis Other: Neuro General: patient oriented x3, moves all extremities and CN's II-XI intact bilaterally Cranial nerves: Yes Equal, round and reactive pupils present Cognition (Neuro): normal cognition Extrem General: Yes normal to inspection, Yes full ROM and Yes capillary refill normal Psych Appearance: grossly normal Mental Status: mental status grossly normal Affect: normal affect Attitude: cooperative Thought process: Normal thought process present Thought content: Normal thought content present Insight: Good insight present (Psych) Course Course Course Narrative: RME, this is a rapid medical exam performed by Nakul Lenz please refer to primary provider for complete H&P- 64 year old male presents for evaluation of a cellulitis/abscess to his left mid back. He has had a cyst in the area for about 6 years. He reports for the last 1-1/2 weeks he has had increased pain and swelling. He completed entire week's worth of Bactrim yesterday and continues to have pain, redness, swelling and purulent discharge. Plan for labs Medications Administered Discontinued Medications Generic Name Dose Route Start Last Admin Trade Name Freq PRN Reason Stop Dose Admin Iohexol 65 ml 10/28/24 15:50 10/28/24 15:50 Iohexol 350 Mg/Ml 100 Ml Infus..Btl IV 10/28/24 15:51 65 ml ONCE ONE Administration Lidocaine HCl 15 ml 10/28/24 17:36 10/28/24 17:55 Lidocaine Hcl 1 % Mpf 5 Ml Vial SUBCUT 10/28/24 17:37 15 ml ONCE ONE Administration Procedures Abscess I/D Site: back Side (if applicable): left Local Anesthetic: lidocaine 1% Amount of anesthesia used (mL): 10 Technique: incised with blade Amount of fluid expressed (mL): 15 Sent for culture/gram staining?: No Irrigation: No Packing used?: iodoform Medical Decision Making Medical Decision Making [facility] Narrative: Patient is a 64 year old assigned male at with a history of a large cyst on his trunk presenting to the emergency department today with an abscess. Patient's physical exam was as noted in the physical exam portion of this note. Patient's blood work was unremarkable. Patient's CT chest showed a 2.5 x 2.8 cm abscess of the back as well as multiple (small) pulmonary nodules. I consulted with Dr. Downs the general surgeon who recommended incision and drainage with packing and outpatient follow up in the wound center. I explained my physical exam findings as well as all test results to the patient. I answered all questions asked by the patient. Patient's abscess was drained, per procedure note, without incident and successfully packed. I stressed the importance of the patient taking his medication as directed (either prescribed or as the over the counter packaging recommends). I stressed the importance of the patient following up with his primary care provider and the wound center. I stressed the importance of the patient returning to the emergency department immediately if his symptoms were to worsen or if he were to develop any dizziness, shortness of breath, difficulty breathing, chest pain, blurry vision, loss of vision, nausea, vomiting, abdominal pain, fever, chills, back pain, or any other complaints. Patient verbalized agreement and understanding with this treatment plan and discharge. Differential Diagnosis Differential Diagnoses: The differential diagnosis associated with the presentation includes Abscess Sebaceous cyst Admission/Observation Consideration of admission/observation: Escalation of care including admission/observation considered Patient would have been admitted to the hospital had his work up had any findings where hospital admission was appropriate and his clinical presentation warranted hospital admission. 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 My interpretation of these results are in the MDM Rationale portion of this note. 10/28/24 14:59 10/28/24 14:59 Labs: Lab Results 06/17/25 Range/Units 14:59 WBC 8.0 (4.8-10.8) X10*3/uL RBC 4.74 (4.60-5.80) X10*6/uL Hgb 14.9 (14.0-18.0) g/dl Hct 43.0 (42.0-52.0) % MCV 90.7 (80.0-98.0) fL MCH 31.4 (27.0-33.0) pg MCHC 34.7 (31.0-36.0) g/dl RDW 12.2 (11.0-16.0) % Plt Count 260 (160-400) X10*3/uL MPV 9.0 L (9.4-12.4) fL Immature Gran % (Auto) 0.9 H (0.0-0.4) % Neut % (Auto) 74.5 H (45-73) % Lymph % (Auto) 13.3 L (20-40) % [place] % (Auto) 8.5 (2-11) % Eos % (Auto) 2.4 (0-4) % Baso % (Auto) 0.4 (0-2) % Lymph # (Auto) 1.1 L (1.2-4.9) X10*3/uL [place] # (Auto) 0.7 (0.1-1.2) X10*3/uL Eos # (Auto) 0.2 (0.0-0.4) X10*3/uL Baso # (Auto) 0.0 (0.0-0.2) X10*3/uL Abs Immat Gran (auto) 0.07 H (0.00-0.03) X10*3/uL Absolute Neuts (auto) 6.0 (2.0-8.3) x10*3/uL Absolute Nucleated RBC 0.000 (0.0-0.012) X10*3/uL Nucleated RBC % (auto) 0.0 (0.0-0.2) /100WBC ESR 10 (0-15) MM/HR Sodium 142 (135-145) mmol/L Potassium 4.5 (3.3-5.1) mmol/L Chloride 110 H (96-108) mmol/L Carbon Dioxide 24 (22-29) mmol/L Anion Gap 13 (12-20) BUN 21 H (9-16) mg/dL Creatinine 1.01 (0.5-1.4) mg/dL Estim Creat Clear Calc 72.9 Estimated GFR > 60 Random Glucose 125 H (60-115) mg/dL Lactic Acid 1.3 (0.5-2.0) mmol/L Calcium 9.3 (8.4-10.2) mg/dL C-Reactive Protein 1.90 H (< or = 0.50) mg/dL Independent Interpretation I performed an independent interpretation of an: CT Scan Interpretation: My interpretation is in agreement with the radiologist's impression of this imaging study. Report Number: [id number]: Total DLP = 366.00 mGy-cm CLINICAL HISTORY: large back mass abscess CT chest with contrast Comparison: None provided Findings: The heart is normal size. The visualized thyroid and mediastinum are unremarkable. No consolidation or effusion. There are small pulmonary nodules, i.e., 3.2 mm in the right upper lobe series 4, image 37. The visualized upper abdomen is unremarkable. 2.5 x 2.8 cm subcutaneous mass of the left lower back with central hypodense area and surrounding fat stranding axial image 55. The bones are intact. IMPRESSION: Subcutaneous lesion of the left lower back could represent an abscess. Tissue sampling is recommended. Small pulmonary nodules. Fleischner Society 2017 Guidelines for incidentally detected indeterminate nodules in persons 35 years of age or older. Single Solid Nodules: 5 mm or smaller nodules need no follow-up in low risk, and [address] follow-up is optional in high risk patients. 6-8 mm nodules have optional [address] follow-up in low risk, and 6-[address] follow-up followed by 18-[address] follow-up if no change in high risk patients. 9 mm or larger nodules should consider CT, PET/CT, or biopsy at 3 months regardless of patient risk. Multiple Solid Nodules: 5 mm or smaller nodules need no follow-up in low risk, and [address] follow-up is optional in high risk patients. 6-8 mm nodules need 3-[address] follow-up followed by an optional 18-[address] follow-up regardless of patient risk.9 mm or larger nodules should consider 3-[address] follow-up. For low risk 18-24 month follow-up is optional, whereas for high risk it is needed. Single Ground Glass Nodules: 5 mm or smaller nodules need no followup 6 mm and larger nodules need CT at 6-12 months to confirm persistence, then CT every 2 years until 5 years Single Subsolid Nodules: 5 mm or smaller nodules need no followup 6 mm and larger nodules need CT at 3-6 months to confirm persistence. If no change and solid component /T/lt;6 mm, then CT every year until 5 years Multiple Ground Glass or Subsolid Nodules: 5 mm or smaller nodules need CT at 3-6 months. If stable, optional CT at 2 and 4 years. 6 mm or larger nodules need CT at 3-6 months. Subsequent management based on most suspicious nodule This document has been electronically signed by: Prema Burdick MD on 10/28/2024 18:02:04 Dictated By: Prema Burdick MD Signed By: Electronically signed by Prema Burdick MD 10/28/24 1803 Radiology Impression Discussion of test interpretation with radiology: I have reviewed the radiologist's reading. Prescription Management I considered prescription management with: Antibiotic (Patient prescribed an antibiotic for abscess) Critical Care Time Critical Care Time Critical Care Time: Yes Total Critical Care Time: 36 Attestation: I spent 36 minutes of Critical Care Time with this patient. This does not include time spent on separately reported billable procedures. Discharge Plan Discharge Clinical Impression: Abscess, Sebaceous cyst Patient Disposition: Home, Self-Care Instructions: Cyst (ED), Abscess Incision and Drainage (DC) Additional Instructions: Your CT scan also showed some small pulmonary nodules that need to be followed up on by your primary care provider for continued monitoring. Your packing will fall out on it's own. Perform daily dressing changes and wound checks. Do NOT soak the affected area. Take your antibiotic as prescribed. Follow up with the general surgeon at the wound care center. Follow up with your primary care provider. Return to the emergency department immediately if your symptoms worsen or if you develop any numbness, tingling, dizziness, shortness of breath, difficulty breathing, chest pain, blurry vision, loss of vision, nausea, vomiting, abdominal pain, fever, chills, back pain, or any other complaints. Please see the information below about our Patient Portal. If you are not yet enrolled in the [facility] Patient Portal, you will receive an enrollment email invitation following your visit to any [facility] setting. You may also self-enroll in the Patient Portal by visiting our website: [email or web address] The following information is required to access the Patient Portal: - Your [facility] Medical Record Number - Your personal home email address (must match what is in your electronic medical record, Registration staff can assist with this) - Name - Date of Capabilities of the Patient Portal: - Message some providers - View upcoming appointments - Access your health summary, medical history, and visit history - View current conditions and allergies - View procedure and lab results - View your medications, including guidelines, side effects, and precautions - Complete pre-appointment questionnaires requested by your provider - Ready summary reports of your office visits and procedures To access the Patient Portal Mobile [employer], follow these directions: - Search [employer] in the [employer] Store or [employer] Store - Download the Javon - Search for [facility] - Enter your login/password Prescriptions: New cephalexin 500 mg capsule 500 mg PO Q6H 7 Days Qty: 28 0RF Referrals: [facility] Family Medicine [Provider Group] (Call to establish and follow up with a primary care provider. If you already have a primary care provider, please follow up with them.) [facility] Primary Care, [place] [Provider Group] (Call to establish and follow up with a primary care provider. If you already have a primary care provider, please follow up with them.) [facility] Primary Care, [place] [Provider Group] (Call to establish and follow up with a primary care provider. If you already have a primary care provider, please follow up with them.) [facility] Primary Care, 10 [Provider Group] (Call to establish and follow up with a primary care provider. If you already have a primary care provider, please follow up with them.) [facility] Primary CareY[facility] [Provider Group] (Call to establish and follow up with a primary care provider. If you already have a primary care provider, please follow up with them.) [facility] Wound Care Management [Provider Group] (Call to establish and follow up with the wound center.) Print Language: Malay
[2024-10-28 15:04] VITALS: BP 123/55; PULSE 71; RESP 18; O2SAT 94
[2024-10-28 15:09] LABS: MANUAL DIFF FLAG NO
[2024-10-28 15:12] LABS: Basophils Percent Auto 0.4 % (0-2); Eosinophils Absolute Auto 0.2 X10*3/uL (0.0-0.4); Eosinophils Percent Auto 2.4 % (0-4); Hemoglobin 14.9 g/dl (14.0-18.0); Imm Gran Abs Auto 0.07 X10*3/uL (0.00-0.03); Imm Gran Pct Auto 0.9 % (0.0-0.4); Lymphocytes Absolute Auto 1.1 X10*3/uL (1.2-4.9); Lymphocytes Percent Auto 13.3 % (20-40); Mean Corpuscular HGB Conc 34.7 g/dl (31.0-36.0); Mean Corpuscular Hemoglobin 31.4 pg (27.0-33.0); Mean Corpuscular Volume 90.7 fL (80.0-98.0); Monocytes Absolute Auto 0.7 X10*3/uL (0.1-1.2); Monocytes Percent Auto 8.5 % (2-11); Neutrophils Percent Auto 74.5 % (45-73); Platelet Count 260 X10*3/uL (160-400); Red Blood Count 4.74 X10*6/uL (4.60-5.80); Red Cell Distribution Width 12.2 % (11.0-16.0)
[2024-10-28 15:24] LABS: Anion Gap 13 (12-20); Blood Urea Nitrogen 21 mg/dL (9-16); Calcium 9.3 mg/dL (8.4-10.2); Carbon Dioxide 24 mmol/L (22-29); Chloride 110 mmol/L (96-108); Creatinine Clr Calc Pharmacy 72.9; Estimated Glomerular Filt Rate > 60; Glucose Random 125 mg/dL (60-115); Potassium 4.5 mmol/L (3.3-5.1); Sodium 142 mmol/L (135-145)
[2024-10-28 15:26] LABS: Lactic Acid 1.3 mmol/L (0.5-2.0)
[2024-10-28] MEDS: iohexoL 350 MG/ML 100 ML INFUS..BTL 65 ML IV (15:50)
[2024-10-28 15:51] LABS: Erythrocyte Sedimentation Rate 10 MM/HR (0-15)
[2024-10-28 16:24] VITALS: BP 123/55; PULSE 71; RESP 18; O2SAT 94
[2024-10-28] MEDS: Lidocaine HCl 1 % MPF 5 ML VIAL 15 ML SUBCUT (17:55)
[2024-10-28 18:16] VITALS: BP 125/60; PULSE 76; RESP 18; TEMP 36.9; O2SAT 94
[2024-10-28 18:17] VITALS: BP 125/60; PULSE 76; RESP 18; TEMP 36.9; O2SAT 94
== END 2024-10-28 18:21 | disposition home or self-care (01) ==
PROVIDERS: Physician Assistant; Emergency Provider Emergency Medicine
DX: L02.212 Cutaneous abscess of back [any part, except buttock and flank] (principal); L72.3 Sebaceous cyst
CPT/HCPCS: 10060; 36415; 71260; 80048; 83605; 85025; 85652; 86140; 87040; 99284; J2003; Q9967

== ENCOUNTER → 2024-10-28 14:41 | Outpatient (BNV) | payer BC, SELFPAY | PROVIDERS: Emergency Provider Emergency Medicine; Visit Provider Nuclear Medicine | DX: R22.2 Localized swelling, mass and lump, trunk (principal) | CPT/HCPCS: 71260 ==

== ENCOUNTER 2025-01-26 15:15 | Outpatient (RCR) | payer BC, SELFPAY | END 2025-01-26 16:27 | disposition home or self-care (01) | LOC: HO.WCC 15:15 | PROVIDERS: Visit Provider Surgery | DX: Z09 Encounter for follow-up examination after completed treatment for conditions other than malignant neoplasm (principal); Z87.2 Personal history of diseases of the skin and subcutaneous tissue | CPT/HCPCS: 11042; 99203; 99212 ==

== ENCOUNTER → 2025-03-24 11:28 | Outpatient (BNVA) | payer OTHER, SELFPAY | PROVIDERS: Visit Provider Emergency Medicine | DX: M54.2 Cervicalgia (principal); M48.061 Spinal stenosis, lumbar region without neurogenic claudication | CPT/HCPCS: 99214 ==

== ENCOUNTER → 2025-04-29 11:38 | Outpatient (BNVA) | payer OTHER, SELFPAY | PROVIDERS: Visit Provider Emergency Medicine | DX: M48.061 Spinal stenosis, lumbar region without neurogenic claudication (principal) | CPT/HCPCS: 99213 ==